=== PATIENT | female | born 2000 | race Caucasian/White ===

== ENCOUNTER 2023-09-27 11:00 | Outpatient (OUT) | payer OTHER, SELFPAY ==
[2023-09-28 08:07] LABS: HBsAg Screen Negative (Negative); HCV Ab Non Reactive (Non Reactive); HIV Ab/p24 Ag Screen Non Reactive (Non Reactive); Hep A Ab, IgM Negative (Negative); Hep B Core Ab, IgM Negative (Negative)
[2023-09-28 09:07] LABS: Rapid Plasma Reagin, Quant Non Reactive titer (NonRea<1:1)
== END 2023-09-27 11:01 | disposition home or self-care (01) ==
LOC: LAB 11:02
PROVIDERS: PCP Family Medicine; Visit Provider Nurse Practitioner Obstetrics & Gynecology
DX: Z11.3 Encounter for screening for infections with a predominantly sexual mode of transmission (principal)
CPT/HCPCS: 36415; 80074; 86592; 87389

== ENCOUNTER 2024-03-02 13:05 | Outpatient (OUT) | payer OTHER, SELFPAY ==
[2024-03-02 13:46] LABS: Basophils Absolute Auto 0.1 10^3/uL (0.0-0.1); Basophils Percent Auto 0.7 % (0.2-2.0); Eosinophils Absolute Auto 0.5 10^3/uL (0.0-0.7); Eosinophils Percent Auto 7.9 % (0.9-7.0); Hematocrit 37.7 % (36.0-48.0); Hemoglobin 11.5 g/dL (12.0-16.0); Immature Granulocytes Abs Auto 0.02 10^3/uL (0.00-0.03); Immature Granulocytes Pct Auto 0.3 % (0.0-0.5); Lymphocytes Absolute Auto 1.4 10^3/uL (1.2-3.8); Lymphocytes Percent Auto 20.3 % (20.5-60.0); Mean Corpuscular HGB Conc 30.5 g/dL (29.9-35.2); Mean Corpuscular Hemoglobin 24.8 pg (26.7-34.0); Mean Corpuscular Volume 81.4 fL (81.0-99.0); Mean Platelet Volume 9.8 fL (9.5-13.5); Monocytes Absolute Auto 0.7 10^3/uL (0.3-0.8); Monocytes Percent Auto 9.7 % (1.7-12.0); Neutrophils Absolute Auto 4.1 10^3/uL (1.4-6.5); Neutrophils Percent Auto 61.1 % (43.0-75.0); Platelet Count 338 10^3/uL (150-450); Red Blood Count 4.63 10^6/uL (4.20-5.40); Red Cell Distribution Width 14.2 % (11.0-15.0); White Blood Count 6.7 10^3/uL (4.0-11.0)
[2024-03-02 14:05] LABS: Alanine Aminotransferase 35 U/L (14-59); Albumin Globulin Ratio 1.2; Albumin Level 3.8 g/dL (3.4-5.0); Alkaline Phosphatase 48 U/L (46-116); Anion Gap 15.7; Aspartate Amino Transferase 21 U/L (15-37); BUN Creatinine Ratio 8.2; Bilirubin Total 0.3 mg/dL (0.2-1.0); Calcium 8.8 mg/dL (8.5-10.1); Carbon Dioxide 26.4 mmol/L (21.0-32.0); Chloride 103 mmol/L (98-107); Estimated GFR (African America >60 (>=60); Estimated GFR (Non-African Ame >60 (>=60); Globulin 3.2 g/dL; Glucose 102 mg/dL (74-106); Potassium 4.1 mmol/L (3.5-5.1); Sodium 141 mmol/L (136-145); Thyroid Stimulating Hormone 5.893 uIU/mL (0.358-3.740)
[2024-03-02 14:15] LABS: Percent Iron Saturation 6.5 %
== END 2024-03-02 13:06 | disposition home or self-care (01) ==
LOC: LAB 13:07
PROVIDERS: PCP Family Medicine; Visit Provider Family Medicine
DX: Z79.899 Other long term (current) drug therapy (principal); R53.83 Other fatigue; D50.9 Iron deficiency anemia, unspecified
CPT/HCPCS: 36415; 80053; 82728; 83540; 83550; 84443; 85025

== ENCOUNTER 2024-05-04 10:09 | Outpatient (OUT) | payer BC, SELFPAY ==
--- OUTSIDE RECORDS SUMMARY | 2024-05-04 10:25 | XMS_ITS | CCD ---
Author Organization [facility] Care Team Providers Care Ship'S Engineer Name Role Phone DR SHERLEY MITCHELL Primary Care Unavailable LUIS FELIPE, DR VINCE Downing Attending Unavailable LUIS FELIPE, DR VINCE Downing Consulting Unavailable LUIS FELIPE, DR VINCE Downing Admitting Unavailable EMETERIO ROSS Consulting Unavailable PERCY TYLER Consulting Unavailable Sherley Valdez Consulting Unavailable PAULA, DR LEPE Admitting Unavailable PAULA, DR LEPE Attending Unavailable PAULA, DR LEPE Consulting Unavailable Sherley Mitchell Unavailable Unavailable Primary Care Provider UnavailEDELMIRA Singh Referring Unavailable EDELMIRA FOSTER Referring Unavailable EDELMIRA FOSTER Referring Unavailable Medications Current Medications Medication Drug Class(es) Dates Sig (Normalized) Sig (Original) [id number] 200 actuat albuterol 0.09 mg/actuat metered dose inhaler (8 sources) beta2-Adrenergic Agonist take 2 puff(s) by inhalation every six hours as needed for wheezing albuterol (PROVENTIL HFA;VENTOLIN HFA) 90 mcg/actuation inhaler Inhale 2 puffs every 6 (six) hours as needed for wheezing. Active take 2 puff(s) by mo uth every four hours for cough Albuterol Sulfate HFA 108 (90 Base) MCG/ACT INHALE 2 PUFFS BY MOUTH EVERY 4 HOURS IF NEEDED FOR COUGH OR SHORTNESS OF BREATH Active take 2 puff(s) by mo uth every four hours for cough Albuterol Sulfate HFA 108 (90 Base) MCG/ACT inhale 2 puffs by mouth and INTO THE LUNGS every 4 hours if needed for cough shortness of breath or wheezing for 16 Active azithromycin 250 mg oral tablet (3 sources) Macrolide Antimicrobial Start: 07-04-2022 Azithromycin 250 MG 2 tablets on day 1 Orally then take 1 tablet daily on days 2-5 for 5 days Jun, Active Ethinyl Estradiol / Ferrous fumarate / Norethindrone (1 source) Estrogen Start: 04-16-2024 take 1 tablet by mouth in the morning, then take 0.05 tablet by mouth once norethindrone-e.e stradioL-iron (JUNEL FE ,) 1 mg-20 mcg (21)/75 mg (7) per tablet Indications: Encounter for initial prescription of contraceptive pills Take 1 tablet by mouth in the morning. 84 tablet 04/16/2024 Active 168 hr ethinyl estradiol 0.57049 mg/hr / norelgestromin 0.12348 mg/hr transdermal system (2 sources) Progestin, Estrogen Start: 04-06-2024 End: 04-16-2024 apply 1 dose transdermal route every week norelgestromin-et hin.estradioL (XULANE) 150-35 mcg/24 hr Indications: Initial encounter for management of contraceptive patch use Place a new patch on the skin as directed once weekly for three weeks, followed by a patch-free week. 3 patch 3 04/06/2024 04/16/2024 Discontinued (Alternate therapy) phentermine hydrochloride 37.5 mg oral tablet (4 sources) Sympathomimetic Amine Anorectic Start: 01-26-2024 take 1 tablet by mouth once daily before breakfast phentermine (ADIPEX-P) 37.5 mg tablet Take 1 tablet (37.5 mg total) by mouth every morning before breakfast. 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 Anxiety disorders (6 sources) Anxiety; Translations: [Anxiety disorder, unspecified] Chronic Appendicitis and other appendiceal conditions (4 sources) Unspecified acute appendicitis; Translations: [UNSPECIFIED ACUTE APPENDICITIS] Onset: 03-16-2021 Episodic Contraceptive and procreative management (3 sources) Encounter for other general counseling and advice on contraception; Translations: [Encounter for surveillance of transdermal patch hormonal contraceptive device] Onset: 04-06-2024 Episodic Deficiency and other anemia (6 sources) Iron deficiency anemia; Translations: [Iron deficiency anemia, unspecified] Episodic Diseases of white blood cells (6 sources) Increased blood leukocyte number; Translations: [Elevated white blood cell count, unspecified] Chronic Esophageal disorders (6 sources) Acid reflux; Translations: [Gastro-esophageal reflux disease without esophagitis] Chronic Immunizations and screening for infectious disease (7 sources) Patient encounter status; Translations: [Encounter for screening for infections with a predominantly sexual mode of transmission] Onset: 09-30-2023 09-30-2023 Episodic Mood disorders (6 sources) Major depressive disorder, single episode, unspecified; Translations: [Depression] Chronic Nutritional deficiencies (6 sources) Vitamin D deficiency; Translations: [Vitamin D deficiency, unspecified] Chronic Other ear and sense organ disorders (6 sources) Hearing loss of left ear; Translations: [Unspecified hearing loss, left ear] Chronic Other ear and sense organ disorders (1 source) Unspecified hearing loss, left ear Chronic Other ear and sense organ disorders (1 source) Impacted cerumen, unspecified ear Episodic Other gastrointestinal disorders (6 sources) Dysphagia; Translations: [Dysphagia, unspecified] Episodic Other gastrointestinal disorders (1 source) Dysphagia, unspecified Episodic Other lower respiratory disease (1 source) Shortness of breath Episodic Other nutritional; endocrine; and metabolic disorders (1 source) Obesity, unspecified; Translations: [OBESITY UNSPECIFIED] Onset: 03-22-2021 Chronic Other nutritional; endocrine; and metabolic disorders (1 source) Body mass index (BMI) 36.0-36.9, adult; Translations: [BODY MASS INDEX BMI 36.0-36.9 ADULT] Onset: 03-22-2021 Chronic Other nutritional; endocrine; and metabolic disorders (1 source) Obese class II; Translations: [Obesity, unspecified] Onset: 03-11-2023 03-11-2023 Chronic Other nutritional; endocrine; and metabolic disorders (2 sources) Obese class I; Translations: [Obesity (BMI 30.0-34.9)] Onset: 03-11-2023 04-06-2024 Chronic Other nutritional; endocrine; and metabolic disorders (2 sources) Abnormal weight gain Episodic Other upper respiratory disease (6 sources) Allergic rhinitis; Translations: [Allergic rhinitis, unspecified] Chronic Screening and history of mental health and substance abuse codes (2 sources) Encounter for screening for depression; Translations: [Standardized adult depression screening tool completed ] Onset: 04-06-2024 04-06-2024 Episodic Thyroid disorders (6 sources) Goiter; 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 Unclassified (1 source) CONTACT W/AND (SUSP) EXPOS COVID-19; Translations: [CONTACT W/AND (SUSP) EXPOS COVID-19] Onset: 03-22-2021 Unclassified (1 source) Gynecologic Exam Onset: 04-06-2024 Unclassified (1 source) Exposure to STD Onset: 06-18-2023 Past or Other Problems Problem Classification Problem Date Documented Date Episodic/Chronic Deficiency and other anemia (4 sources) Iron deficiency anemia, unspecified; Translations: [IRON DEFICIENCY ANEMIA UNSPECIFIED] Onset: 05-08-2020 Episodic Mood disorders (3 sources) Mood disorders Onset: 03-11-2023 Resolved: 04-06-2024 03-11-2023 Other female genital disorders (2 sources) Vaginal discharge; Translations: [Other specified noninflammatory disorders of vagina] Onset: 09-30-2023 09-30-2023 Episodic Other female genital disorders (2 sources) Other specified noninflammatory disorders of vagina; Translations: [Other specified noninflammatory disorders of vagina] Onset: 09-30-2023 Episodic Unclassified (1 source) Acute cough R05.1 Unclassified (3 sources) Onset: 03-11-2023 Resolved: 04-06-2024 03-11-2023 Results Test Name Value Interpretation Reference Range Facility CHLAMYDIA/GC BY PCRon 2023 CHLAMYDIA/GC BY PCR SPECIMEN SOURCE CERVICAL CHLAMYDIA DNA(PCR) Negative (qualifier value) Chlamydia trachomatis not detected by nucleic acid amplification. This does not exclude the possibility of infection because results are dependent on adequate specimen collection. GONORRHOEAE DNA(PCR) Negative (qualifier value) Neisseria gonorrhoeae not detected by nucleic acid amplification. This does not exclude the possibility of infection because results are dependent on adequate specimen collection. Normal [facility] Comment on above: Performed By: #### C GS #### [facility] ([id number]) [address] [place] [address], [address] [place] [address] POCT , urineon 100 Beta HCG ( test) Ql (U) Negative [facility] Internal Wine Steward Check Completed and Passed Yes [facility] Interpretation and review of laboratory results Normal [facility] TRICHOMONAS PCRon 04-06-2024 TRICHOMONAS PCR SPECIMEN SOURCE CERVICAL TRICHOMONAS PCR Not detected (qualifier value) Trichomonas vaginalis not detected NOTE Assay methodology is nucleic acid amplification by real-time PCR for detection of Trichomonas vaginalis DNA performed on [employer] Instrument System. Normal [facility] Comment on above: Performed By: #### T RKPCR #### [facility] ([id number]) [address] [place] [address], [address] [address] CHLAMYDIA/GC BY PCRon 2023 CHLAMYDIA/GC BY PCR SPECIMEN SOURCE CERVIX CHLAMYDIA DNA(PCR) Negative (qualifier value) Chlamydia trachomatis not detected by nucleic acid amplification. This does not exclude the possibility of infection because results are dependent on adequate specimen collection. GONORRHOEAE DNA(PCR) Negative (qualifier value) Neisseria gonorrhoeae not detected by nucleic acid amplification. This does not exclude the possibility of infection because results are dependent on adequate specimen collection. Normal [facility] Comment on above: Performed By: #### C GS #### [facility] ([id number]) [address] [place] [address], [address] [place] [address] VAGINITIS PANEL PCRon 2023 VAGINITIS PANEL PCR BACT. VAGINOSIS DNA Not detected (qualifier value) Qualitative results are reported based on detection and quantitation of targeted organism markers which include: Lactobacillus spp. (L. crispatus and L. jensenii), Gardnerella vaginalis, Atopobium vaginae, Bacterial Vaginosis Associated Bacteria-2 (BVAB-2) and Megasphaera-1 KALANI SPECIES DNA Not detected (qualifier value) Kalani species not detected include: C. albicans, C. tropicalis, C. parapsilosis or C. dubliniensis KALANI KRUSEI DNA Not detected (qualifier value) No Kalani krusei detected KALANI GLABRATA DNA Not detected (qualifier value) No Kalani glabrata detected TRICHOMONAS VAG DNA Not detected (qualifier value) No Trichomonas vaginalis detected NOTE BD MAX Vaginal Panel has not been evaluated for patients under 18 years old. Results for these patients should be reviewed and assessed in accordance with clinical presentation to determine patient diagnosis. [facility] Comment on above: Performed By: #### V PPCR #### [facility] ([id number]) [address] [place] [address], [address] [place] [address] CHLAMYDIA/GC BY PCRon 2022 CHLAMYDIA/GC BY PCR SPECIMEN SOURCE CERVIX CHLAMYDIA DNA(PCR) Negative (qualifier value) Chlamydia trachomatis not detected by nucleic acid amplification. This does not exclude the possibility of infection because results are dependent on adequate specimen collection. GONORRHOEAE DNA(PCR) Negative (qualifier value) Neisseria gonorrhoeae not detected by nucleic acid amplification. This does not exclude the possibility of infection because results are dependent on adequate specimen collection. [facility] Comment on above: Performed By: #### C GS #### [facility] ([id number]) [address] [place] [address], [address] [place] [address] VAGINITIS PANEL PCRon 2022 VAGINITIS PANEL PCR BACT. VAGINOSIS DNA Not detected (qualifier value) Qualitative results are reported based on detection and quantitation of targeted organism markers which include: Lactobacillus spp. (L. crispatus and L. jensenii), Gardnerella vaginalis, Atopobium vaginae, Bacterial Vaginosis Associated Bacteria-2 (BVAB-2) and Megasphaera-1 KALANI SPECIES DNA Not detected (qualifier value) Kalani species not detected include: C. albicans, C. tropicalis, C. parapsilosis or C. dubliniensis KALANI KRUSEI DNA Not detected (qualifier value) No Kalani krusei detected KALANI GLABRATA DNA Not detected (qualifier value) No Kalani glabrata detected TRICHOMONAS VAG DNA Not detected (qualifier value) No Trichomonas vaginalis detected NOTE BD MAX Vaginal Panel has not been evaluated for patients under 18 years old. Results for these patients should be reviewed and assessed in accordance with clinical presentation to determine patient diagnosis. Normal [facility] Comment on above: Performed By: #### V PPCR #### [facility] ([id number]) [address], [address] [place] [address] ASYMPTOMATIC COVID-19 ANTIGE Non 03-16-2021 EUA Statement SEE BELOW Normal [facility] Comment on above: Result Comment: This test has not been FDA cleared or approved, but has been authorized by the FDA under an Emergency Use Authorization (EUA) for use by authorized laboratories certified under CLIA that meet the requirements to perform moderate or high complexity testing. This test has been authorized only for the detection of proteins from SARS-CoV-2, not for any other viruses or pathogens. The emergency use of this test is authorized for the duration of the declaration that circumstances exist justifying the authorization of emergency use of in vitro diagnostic tests for detection and/or diagnosis of Covid-19 under section 564(b)(1) of the Act, 21 U.S.C. 360bbb-3(b)(1), unless the declaration is terminated or authorization is revoked sooner. Performed By: #### C VDAGA #### [facility] [address] [address] [address] Shasta Castro SARS-CoV-2 (COVID-19) RNA DAMIEN+probe Ql (Unsp spec) Negative Normal NEGATIVE [facility] Comment on above: Result Comment: Nega tive results are presumptive. They do not preclude infection and should not be used as the sole basis for treatment decisions. Additional confirmatory testing by a molecular method should be considered. Performed By: #### C VDAGA #### [facility] [address] [place], [place] [address] Dr. Shasta Castro CBC AUTO DIFFon 03-16-2021 BASO # 0.1 103/ul Normal 0.0-0.1 [facility] Comment on above: Performed By: #### C BC ####[facility] [address] [place], [place] [address]IlDr. Shasta Castro Basophils/100 WBC (Bld) 0.7 % Normal 0.2-2.0 [facility] Comment on above: Performed By: #### C BC ####[facility] [address] [place], [place] [address]DrNaren Castro EO # 0.5 103/ul Normal 0.0-0.7 [facility] Comment on above: Performed By: #### C BC ####[facility] [address] [place], [place] [address]Dr. Shasta Castro Eosinophils/100 WBC (Bld) 6.2 % Normal 0.9-7.0 [facility] Comment on above: Performed By: #### C BC ####[facility] [address] [place], [place] [address]Dr. Shasta Castro Erythrocyte distribution width (RBC) [Ratio] 13.8 % Normal 11.0-15.0 [facility] Comment on above: Performed By: #### C BC ####[facility] [address] [place], [place] [address]Dr. Shasta Castro Hematocrit (Bld) [Volume fraction] 37.8 % Normal 36.0-48.0 [facility] Comment on above: Performed By: #### C BC ####[facility] [address] [place], [place] [address]DrNaren Castro Hemoglobin (Bld) [Mass/Vol] 11.8 g/dL Critically low 12.0-16.0 [facility] Comment on above: Performed By: #### C BC ####[facility] [address] [place], [place] [address]DrNaren Castro IG # 0.03 10e3/ul Normal 0.00-0.03 [facility] Comment on above: Performed By: #### C BC ####[facility] [address] [place], [place] [address]Dr. Shasta Castro IG % 0.4 % Normal 0.0-0.5 [facility] Comment on above: Performed By: #### C BC ####[facility] [address] [place], [place] [address]DrNaren Castro LYMPH # 1.8 103/ul Normal 1.2-3.8 [facility] Comment on above: Performed By: #### C BC ####[facility] [address] [address]Dr. Shasta Castro Lymphocytes/100 WBC (Bld) 21.2 % Normal 20.5-60.0 [facility] Comment on above: Performed By: #### C BC ####[facility] [address] [address]Dr. Shasta Castro MANUAL DIFF REQ NO Normal [facility] Comment on above: Performed By: #### C BC ####[facility] [address] [address]Dr. Shasta Castro MCH (RBC) [Entitic mass] 24.7 pg Critically low 26.7-34.0 [facility] Comment on above: Performed By: #### C BC ####[facility] [address] [place], [place] [address]Dr. Shasta Castro MCHC (RBC) [Mass/Vol] 31.2 g/dL Normal 29.9-35.2 [facility] Comment on above: Performed By: #### C BC ####[facility] [address] [place], [place] [address]Dr. Shasta Castro MCV (RBC) [Entitic vol] 79.2 fL Critically low 81.0-99.0 [facility] Comment on above: Performed By: #### C BC ####[facility] [address] [place], [place] [address]Dr. Shasta Castro MONO # 0.6 103/ul Normal 0.3-0.8 [facility] Comment on above: Performed By: #### C BC ####[facility] [address] [place], [place] [address]DrNaren Castro Monocytes/100 WBC (Bld) 7.5 % Normal 1.7-12.0 [facility] Comment on above: Performed By: #### C BC ####[facility] [address] [place], [place] [address]Dr. Shasta Castro NEUT # 5.4 103/ul Normal 1.4-6.5 [facility] Comment on above: Performed By: #### C BC ####[facility] [address] [address]Dr. Shasta Castro Neutrophils/100 WBC (Bld) 64.0 % Normal 43.0-75.0 [facility] Comment on above: Performed By: #### C BC ####[facility] [address] [address]Dr. Shasta Castro Platelet mean volume (Bld) [Entitic vol] 9.6 fL Normal 9.5-13.5 [facility] Comment on above: Performed By: #### C BC ####[facility] [address] [place] [address]Dr. Shasta Castro PLT 354 103/ul Normal 150-450 [facility] Comment on above: Performed By: #### C BC ####[facility] [address] [place] [address]Dr. Shasta Castro RBC 4.77 106/ul Normal 4.20-5.40 [facility] Comment on above: Performed By: #### C BC ####[facility] [address] [address]Dr. Shasta Castro WBC 8.4 103/ul Normal 4.0-11.0 [facility] Comment on above: Performed By: #### C BC ####[facility] [id number]. Shasta Castro CT ABD/PELV W CONon 03-16-[address] ABD/PELV W CON CT ABDOMEN AND PELVIS WITH CONTRAST CLINICAL: Right lower quadrant pain for 3 days. COMPARISON: No prior studies are available. TECHNIQUE: High-resolution axial images were obtained from diaphragms to pubic symphysis after IV administration 100 ml Omnipaque 300. Dose reduction: mA and/or kV are were adjusted by automated exposure control software based upon patients height and weight. FINDINGS: Lung bases are unremarkable. The liver, spleen, pancreas and adrenals are unremarkable. Gallbladder shows no evidence of calcified gallstones or biliary obstruction. Kidneys show no evidence of obstructive uropathy, calculus or mass. Urinary bladder shows no gross abnormality. Distal ureters and bladder show no evidence of filling defect on delayed images. Uterus and adnexal regions appear age-appropriate, with a peripherally enhancing cyst in the left adnexa measuring 2.2 cm, probably a corpus luteum. Small amount of free pelvic fluid is probably physiologic in light of patient's age but may also be in part reactive in light of the appendiceal findings discussed below. In the right lower quadrant, the appendix is thickened at 1.1 cm transverse diameter and shows ill-defined mucosal margins and surrounding mesenteric inflammation. No evidence of extraluminal gas or fluid collection. No bowel obstruction or free intraperitoneal air. No ascites or abdominal adenopathy. Ileocolic lymph nodes of up to 6 mm diameter likely reactive or inflammatory. Osseous structures show no traumatic or destructive lesion. IMPRESSION: 1. CT findings consistent with acute appendicitis. 2. The appendix is mildly dilated with ill-defined mucosal margins, surrounding mesenteric inflammation and mild hyperenhancement. No evidence of extraluminal gas or fluid to indicate perforation or rupture. 3. Small amount of free pelvic fluid likely physiologic in light of patient's age but may be reactive in this setting. 2.2 cm peripherally enhancing left adnexal cyst, probably a physiologic corpus luteum. 4. No additional acute intra-abdominal or intrapelvic findings. Electronically authenticated by: SHERLEY VALDEZ Date: 2021-03-16 12:06 Normal [facility] SARS-CoV-2 (COVID-19) RNA DAMIEN+probe Ql (Unsp spec) Not detected Normal NOT DETECTED [facility] Comment on above: Result Comment: This test is not yet approved or cleared by the [place] FDA. When there are no FDA-approved or cleared tests available, and other criteria are met, FDA can make tests available under an emergency access mechanism called an Emergency Use Authorization (EUA). The EUA for this test is supported by the Animal Researcher of Health and Human Service's (HHS's) declaration that circumstances exist to justify the emergency use of in vitro diagnostics for the detection and/or diagnosis of the virus that causes COVID-19. This EUA will remain in effect (meaning this test can be used) for the duration of the COVID-19 declaration justifying emergency of IVDs, unless it is terminated or revoked by FDA (after which the test may no longer be used). When diagnostic testing is negative, the possibility of a false negative should be considered in the context of a patient's recent exposures and the presence of clinical signs and symptoms consistent with SARS-CoV-2. Performed By: #### C VDTB ####[facility] [address] [address]Dr. Shasta Castro ER URINE PROFILEon 1 Bilirubin Ql (U) Negative Normal NEGATIVE [facility] Comment on above: Performed By: #### E RUR, PREGU #### [facility] [address] [place] [address] Dr. Shasta Castro Clarity (U) CLEAR Normal CLEAR [facility] Comment on above: Performed By: #### E RUR, PREGU #### [facility] [address] [place] [address] Dr. Shasta Castro Color (U) LT. YELLOW Normal YELLOW [facility] Comment on above: Performed By: #### E RUR, PREGU #### [facility] [address] [place] [address] Dr. Shasta Castro ERUAHD A micrscopic examination will be performed if indicated. Normal [facility] Comment on above: Performed By: #### E RUR, PREGU #### [facility] [address] [place] [address] Dr. Shasta Castro Glucose Ql (U) Negative Normal NEGATIVE [facility] Comment on above: Performed By: #### E RUR, PREGU #### [facility] [address] [place] [address] Dr. Shasta Castro Hemoglobin Ql (U) Negative Normal NEGATIVE [facility] Comment on above: Performed By: #### E RUR, PREGU #### [facility] [address] [place] [address] Dr. Shasta Castro Ketones Ql (U) Negative Normal NEGATIVE [facility] Comment on above: Performed By: #### E RUR, PREGU #### [facility] [address] [place] [address] Dr. Shasta Castro LEUKOCYTES TRACE Abnormal NEGATIVE [facility] Comment on above: Performed By: #### E RUR, PREGU #### [facility] [address] [place] [address] Dr. Shasta Castro Nitrite Ql (U) Negative Normal NEGATIVE [facility] Comment on above: Performed By: #### E RUR, PREGU #### [facility] [address] [place] [address] Dr. Shasta Castro pH (U) 6.0 [pH] Normal 5-9 [facility] Comment on above: Performed By: #### E RUR, PREGU #### [facility] [address] [place] [address] Dr. Shasta Castro SPEC GRAVITY 1.025 Normal 1.005-<=1.025 [facility] Comment on above: Performed By: #### E RUR, PREGU #### [facility] [address] [place] [address] Dr. Shasta Castro UA PROTEIN Negative Normal NEGATIVE/ TRACE [facility] Comment on above: Performed By: #### E RUR, PREGU #### [facility] [address] [place] [address] Dr. Shasta Castro UR MICRO IND NOT INDICATED Normal [facility] Comment on above: Performed By: #### E RUR, PREGU #### [facility] [address] [place] [address] Dr. Shasta Castro Urobilinogen Qn (U) 0.2 {Ester'U}/dL Normal 0.2 - 1. 0 [facility] Comment on above: Performed By: #### E RUR, PREGU #### [facility] [address] [place] [address] Dr. Shasta Castro URon 03-16-2021 , QUAL Negative Normal NEGATIVE [facility] Comment on above: Performed By: #### E RUR, PREGU #### [facility] [address] [place] [address] Dr. Shasta Castro PROF CHEM 8 (BAS METB)on Anion gap [Moles/Vol] 13.9 mmol/L Normal [facility] Comment on above: Performed By: #### B MP #### [facility] [address] [address] [address] Shasta Castro Calcium [Mass/Vol] 9.1 mg/dL Normal 8.4-10.2 [facility] Comment on above: Performed By: #### B MP #### [facility] [address] [address] [address] Shasta Castro Chloride [Moles/Vol] 103 mmol/L Normal 98-107 [facility] Comment on above: Performed By: #### B MP #### [facility] [address] [place] [address] Dr. Shasta Castro CO2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 1286 1998 Unknown [id number] 1286 1998 Unknown [id number] 1286 1998 Unknown [id number] 1959 Unknown [id number] Social History Date Type Detail Facility Start: 09-30-2023 End: 04-06-2024 Sex Assigned At [facility] Start: 08-07-2022 Tobacco smoking stat [facility] Never smoked tobacco [facility] Start: 08-07-2022 Tobacco use and exposure Smokeless tobacco non-user [facility] Start: 09-30-2023 End: 04-06-2024 Alcohol intake Current drinker of alcohol (finding) [facility] Start: 09-30-2023 End: 04-06-2024 History of Social function [facility] Adolescent depressio n screening assessment 8 [facility] Start: 08-07-2022 Alcohol Comment socially [facility] Start: 2000 Sex Assigned At Not on file P [facility] Start: 02-02-2015 Sex Female (finding) [facility] Clinical Notes 03-16-2021 to 04-06-2024 Edelmira Foster, [facility] 04/06/2024 9:30 AM EDTLjosé miguel Markham [facility] - 09/30/2023 9:15 AM EDT Note Date & Type Note Facility 04-06-2024 History of Present illness Narrative Annual Well Woman Visit 04/06/2024 Subjective Tonia Tidwell is a pleasant 24 y.o. 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 Periods are regular every 28-30 days, lasting 5 days. Dysmenorrhea: none. Cyclic symptoms include none. Denies intermenstrual bleeding, spotting, or abnormal discharge. No pelvic pain. Patient desires all STD testing today. Complaints today: wants to discuss contraception, last intercourse was 2 weeks ago with a condom Relationship status: in a relationship The patient reports that there is not domestic violence in her life. 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 [employer] Former smoker Children NO Current contraception: condoms History of abnormal Pap smear: no Last pap: 2022- Regular self breast exam: no Last mammogram: N/A Family history of breast cancer: yes - paternal grandmother age 60s Family history of uterine or ovarian cancer: no Family history of pancreatic or prostate cancer: no Family history of colon cancer: no HPV vaccinated: no PHQ9 depression screenin LMP 03/20/2024 OB History 0 Para 0 Term 0 0 AB 0 Living 0 SAB 0 IAB 0 Ectopic 0 Multiple 0 Live Births 0 The following portions of the patient's history were reviewed and updated as appropriate: allergies, current medications, past family history, past medical history, past social history, past surgical history and problem list. MEDICAL HX Past Medical History: Diagnosis Date Anemia In 2018 Anxiety 2017 Asthma Depression 2017 SURGICAL HX Past Surgical History: Procedure Laterality Date APPENDECTOMY 2021 FAMILY HX Family History Problem Relation Age of Onset Breast cancer Paternal Grandmother Asthma Brother MEDS Current Outpatient Medications Medication Sig Dispense Refill albuterol (PROVENTIL HFA;VENTOLIN HFA) 90 mcg/actuation inhaler Inhale 2 puffs every 6 (six) hours as needed for wheezing. phentermine (ADIPEX-P) 37.5 mg tablet Take 1 tablet (37.5 mg total) by mouth every morning before breakfast. norelgestromin-ethin.estradioL (XULANE) 150-35 mcg/[address] a new patch on the skin as directed once weekly for three weeks, followed by a patch-free week. 3 patch 3 No current facility-administered medications for this visit. ALLERGIES No Known Allergies Review of Systems Constitutional: Negative. Respiratory: Negative. Negative for chest tightness and shortness of breath. Cardiovascular: Negative. Negative for chest pain and palpitations. Gastrointestinal: Negative. Negative for constipation, diarrhea, nausea and vomiting. Endocrine: Negative. Genitourinary: Negative. Negative for dyspareunia, menstrual problem and pelvic pain. Musculoskeletal: Negative. Skin: Negative. Allergic/Immunologic: Negative. Neurological: Negative. Hematological: Negative. Psychiatric/Behavioral: Negative. Objective BP 118/88 Ht 157.5 cm (5' 2 ) Wt 81.6 kg (180 lb) LMP 03/20/2024 (Approximate) BMI 32.92 kg/m Physical Exam Vitals and nursing note reviewed. Constitutional: Appearance: Normal appearance. HENT: Head: Normocephalic and atraumatic. Cardiovascular: Rate and Rhythm: Normal rate and regular rhythm. Pulses: Normal pulses. Heart sounds: Normal heart sounds. Pulmonary: Effort: Pulmonary effort is normal. Breath sounds: Normal breath sounds. Chest: Breasts: Breasts are symmetrical. Right: Normal. No mass, skin change or tenderness. Left: Normal. No mass, skin change or tenderness. Abdominal: General: Bowel sounds are normal. Palpations: Abdomen is soft. Genitourinary: General: Normal vulva. Labia: Right: No rash or lesion. Left: No rash or lesion. Vagina: Normal. Cervix: Normal. Uterus: Normal. Not enlarged and not tender. Adnexa: Right adnexa normal and left adnexa normal. Right: No mass, tenderness or fullness. Left: No mass, tenderness or fullness. Musculoskeletal: General: Normal range of motion. Cervical back: Normal range of motion and neck supple. Skin: General: Skin is warm and dry. Neurological: Mental Status: She is alert and oriented to person, place, and time. Psychiatric: Mood and Affect: Mood normal. Speech: Speech normal. Behavior: Behavior normal. Thought Content: Thought content normal. Judgment: Judgment normal. Assessment/Plan: Tonia was seen today for gynecologic exam and contraception. Diagnoses and all orders for this visit: Well woman exam with routine gynecological exam Screening examination for STD (sexually transmitted disease) - Chlamydia/GC by PCR Nixon Swab; Future - Trichomonas by PCR; Future - HIV 1&2 AB/AG Screen (P24 AG); Future - Syphilis Total(Unknown Syphilis Status); Future - Hepatitis panel, acute; Future General counselling and advice on contraception - POCT , urine Initial encounter for management of contraceptive patch use - norelgestromin-ethin.estradioL (XULANE) 150-35 mcg/24 hr; Place a new patch on the skin as directed once weekly for three weeks, followed by a patch-free week. Standardized adult depression screening tool completed Discussed risks / benefits of BC options: OCPs, POPs, patch, NuvaRing vs LARCs (IUDs/implant/Depo provera). Patient desires patches. BMI is above average; Discussed eating tips for weight loss and and exercise steps. Breast self exam technique reviewed and patient encouraged to perform self-exam monthly. Discussed healthy lifestyle modifications. Educational material distributed. 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 Follow up as needed. Next pap due 2025 per ASCCP guidelines. Discussed taking a multivitamin. Discussed Calcium and Vitamin D for prevention of osteoporosis. Discussed recommendations for HPV vaccine between 9-45 yo. [facility] or the health department. Discussed need for yearly mammogram after 40 yo. Discussed colon cancer screening recommendations to begin at 45 yo, patient to discuss with PCP. All questions answered. RTO 3 months for medication follow up. DANELLE Currie APRN-CNP Lisa M Krotzer, APRN-CNP 04/06/24 [id number] documented in this encounter [facility] 09-30-2023 History of Present illness Narrative Subjective: Tonia Tidwell is a 23 y.o. female who presents for evaluation of an abnormal vaginal discharge. Symptoms have been present for approx 5 days. Pt reports that on Friday last week she had a chunk yellow discharge and suspected she was about to get a yeast infection. She denies any vaginal itching. She states that on it had developed into a slimy green/yellow color with a slight odor. She denies any abnormal discharge or odor today and states that her sympotms cleared up on Friday. Patient denies pelvic pain. Patient states she went to [facility] over the weekend and had syphilis, hepatitis and HIV labs drawn. She has not received results yet. Contraception: condoms, most of the time The following portions of the patient's history were reviewed and updated as appropriate: allergies, current medications, past family history, past medical history, past social history, past surgical history, problem list, and medication reconciliation was completed including current medication and post discharge medication. Review of Systems Constitutional: Negative. Gastrointestinal: Negative. Genitourinary: Positive for vaginal discharge. Negative for dyspareunia, menstrual problem and pelvic pain. Neurological: Negative. Psychiatric/Behavioral: Negative. Objective: Physical Exam Vitals and nursing note reviewed. Constitutional: Appearance: Normal appearance. Pulmonary: Effort: Pulmonary effort is normal. Genitourinary: General: Normal vulva. Labia: Right: No rash or lesion. Left: No rash or lesion. Vagina: Normal. Cervix: Normal. Musculoskeletal: General: Normal range of motion. Skin: General: Skin is warm and dry. Neurological: Mental Status: She is alert and oriented to person, place, and time. Psychiatric: Mood and Affect: Mood normal. Behavior: Behavior normal. Thought Content: Thought content normal. Judgment: Judgment normal. Assessment: Tonia was seen today for vaginal discharge. Diagnoses and all orders for this visit: Vaginal discharge - Vaginitis Panel PCR; Future - Chlamydia/GC by PCR Nixon Swab; Future Screen for STD (sexually transmitted disease) - Chlamydia/GC by PCR Nixon Swab; Future Plan: Await cultures and treat accordingly. KARL signed to obtain labs from [facility]. Consistent condom use recommended for STD prevention. All questions answered. Educational material provided through [employer]. RTO for annual (due February 2024) or sooner as needed. KRYSTIAN Lopez APRN-CNP Lisa M Franco, APRN-CNP 09/30/23 [id number] documented in this encounter [employer] 07-30-2023 Evaluation note Encounter Date Diagnosis Assessment Notes Jun, Weight gain (ICD-10 - R63.5) [employer] Other 01-25-2024 Evaluation note* Encounter Date Diagnosis Assessment Notes Treatment Notes Treatment Clinical Notes Jun, Acute cough (ICD-10 - R05.1) I feel that the cough and shortness of breath were caused by a respiratory infection. It appears to have responded by the Zithromax. She is not having any issues or difficulty breathing at this time. Jun, Shortness of breath (ICD-10 - R06.02) Jun, Weight gain (ICD-10 - R63.5) Her weight on 07/24/23 was 205. She would like to take Adipex to help with weight loss. 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 I would need to see her again in one month but she will need to call with a blood pressure reading in one week. She voiced that her goal weight is between 150-170 pounds. I encourgaed her to make dietary and lifestyle changes that she can continue with once she has lost the weight. Jun, Other This documentat ion is being amended on 07/30/23 due to an internal data corruption event that occurred on 07/24/23. This data corruption event was NOT the result of any breach, fraud, or malicious third libertarian actors and no personal patient information was compromised. [employer] Other 10-19-2023 Evaluation note* Encounter Date Diagnosis Assessment Notes Treatment Notes Treatment Clinical Notes Mar, Dysphagia (ICD-10 - R13.10) She has white exudates on her tonsils and it is difficult for her to swallow. I would like to treat with above medication. She is contagious for 48 hours after she has taken the antibiotic. Do not kiss or share drinks with anyone. I will provide her with an off work note for 04-17 and 04-18-23 due to medical reasons. Eat yogurt while on ATB to prevent GI upset. Rest, push fluids. Mar, Other 10:45 AM - 10:5 0 AM [employer] Other 09-13-2023 Evaluation note* Encounter Date Diagnosis Assessment Notes Treatment Notes Treatment Clinical Notes Feb, Impacted cerumen (ICD-10 - H61.20) bilateral but left was worse than right Verbal consent was obtained for a left ear irrigation. I would like her to return to complete the ear irrigation. She was able to hear once most of the ear was irrigated but due to her eyes beginning to bother her we elected to stop the procedure. She will return in two weeks for evaluation. I did recommend that she use OTC Debrox in the left ear and the right ear which is impacted with wax. Guidance was given on how to use the Debrox. She will return for a bilateral ear irrigation in two weeks. 13 Feb, 2023 Decreased hearing of left ear (ICD-10 - H91.92) I suspect that the cerumen impaction is the cause of the hearing difficulty on the left and she did state that momentarily her hearing was back to normal after we did get a significant amount of cerumen out of left EAC but then it seemed to close up again, hopefully because of water still in the canal. I am unable to visualize the TMs. [employer] Other 09-17-2021 NoteHISTORY AND PHYSICAL EXAMINATION CHIEF COMPLAINT: Right lower quadrant abdominal pain, acute appendicitis. HISTORY OF PRESENT ILLNESS: The patient is a 21-year-old woman who began to have right lower quadrant abdominal pain, states that she has had the pain for 3 days. At first, she thought she was constipated but then she had a bowel movement and the pain did not go away. As a result, she presented to the emergency department. Her white blood cell count was normal however a CT scan of the abdomen and pelvis was consistent with acute appendicitis. REVIEW OF SYSTEMS: Ten-point review of systems is negative except for what is noted in the HPI. PAST MEDICAL HISTORY: Negative. PAST SURGICAL HISTORY: Negative. FAMILY HISTORY: Noncontributory. ALLERGIES: No known drug allergies. HOME MEDICATIONS: None. SOCIAL HISTORY: Denies any tobacco or alcohol use. PHYSICAL EXAMINATION: VITAL SIGNS: Temperature is 98.1, heart rate 92, blood pressure 102/52, respiratory rate 16, O2 saturation is 100%, BMI 36.9. GENERAL: Comfortable currently. SKIN: No rashes or jaundice. HEENT: Normocephalic, atraumatic. Pupils equally round and reactive to light and accommodation. Extraocular movements are intact. No otorrhea or rhinorrhea. Throat without exudates. Mucous membranes are moist. NECK: Supple. No lymphadenopathy. No JVD. Thyroid is not enlarged. CARDIOVASCULAR: Regular rate and rhythm without murmurs, rubs or gallops. LUNGS: Clear to auscultation bilaterally. No wheezes, rhonchi or crackles. ABDOMEN: Soft, nondistended. Positive right lower quadrant tenderness. No involuntary guarding. EXTREMITIES: Warm. No clubbing, cyanosis or edema. NEUROLOGICAL: Cranial nerves II through XII grossly intact. Patient is alert and oriented x3. She has appropriate mood and affect. ASSESSMENT: Acute appendicitis. PLAN: 1. Patient will undergo a laparoscopic, possible open, appendectomy. 2. The risks of the procedure including bleeding, infection and bowel perforation were discussed with patient and she is willing to undergo the procedure. 3. Most likely, the patient will be discharged home after the procedure.. [facility] Signed and Approved by: DR VINCE VIRK . 03/23/2021 06:09:00[facility]09-17-2021 NoteOPERATIVE NOTE OPERATION DATE: 03/16/2021 PREOPERATIVE DIAGNOSIS: Acute appendicitis. POSTOPERATIVE DIAGNOSIS: Acute appendicitis. PROCEDURE PERFORMED: Laparoscopic appendectomy. SURGEON: Vince Virk MD BOBCAT DRIVER/LABOR: PATRICA Lind ANESTHESIA: General, 0.5% Marcaine for local. ESTIMATED BLOOD LOSS: Minimal. SPECIMENS: Appendix. DISPOSITION: Patient was extubated in the Operating Room and taken to the PACU in fair condition. PROCEDURE: Patient was brought into the Operating Room and placed supine on the operating table. After establishment of general endotracheal anesthesia, the patient's abdomen was prepped and draped in a sterile fashion. An infraumbilical incision was made. The incision was carried down through the skin using sharp dissection and through the soft tissue using electrocautery Bovie until reaching the anterior rectus fascia. The fascia was scored in the midline and grasped with Denisse clamps and elevated. 0 Vicryl stay sutures were placed. Using blunt dissection, the posterior sheath was visualized, grasped with hemostats and elevated and incised with a scalpel. A 12 mm Wilma port with a balloon was placed into her abdominal cavity and the balloon was insufflated with air. Under direct laparoscopic visualization, a 5 mm port was placed in her right upper quadrant and another 5 mm port was placed to the left of the midline in the lower abdomen. The operating table was then placed in a Trendelenburg position. The appendix was visualized. The tip of the appendix was enlarged and acutely inflamed. The base of the appendix was transected free and a defect in the mesoappendix was created with a curved dissector. The base of the appendix was transected using an Endo SVEN stapler. The mesoappendix was transected using the LigaSure device. The appendix was placed in an EndoCatch bag and brought out through the infraumbilical incision. The port was replaced and the abdomen re-insufflated with CO2 gas. The right lower quadrant was irrigated with normal saline and suctioned. The 5 mm ports were removed. There was no evidence of any bleeding. The infraumbilical port was removed and the fascia was reapproximated using the previously placed stay sutures. All the wounds were anesthetized with 0.5% Marcaine. The skin was reapproximated using 4-0 Monocryl in a subcuticular fashion. The incisions were cleaned with normal saline and dried. Tincture of benzoin was placed on both sides of the incisions and 1/2 inch Steri-Strips were placed along with dry sterile dressings. The patient was extubated in the Operating Room and taken to the PACU in fair condition. All instrument and sponge counts were correct at the end of the case.. [facility] Signed and Approved by: DR VINCE VIRK . 03/17/2021 07:52:00[facility] noteNo InformationNortClarks [facility] [employer] Other Evaluation note* Diagnosis Vaginal discharge- Primary Leukorrhea, not specified as infective Screen for STD (sexually transmitted disease) Screening examination for venereal disease [facility] Well woman exam with routine gynecological exam- Primary Routine gynecological examination Screening examination for STD (sexually transmitted disease) General counselling and advice on contraception Initial encounter for management of contraceptive patch use Standardized adult depression screening tool completed [facility] Encounter for initial prescription of contraceptive pills- Primary [facility] - Reported* Type Description Date Medical History chickenpox Medical History anxiety Medical History chronic depression [facility] [employer] Other Instructions* Attachments The following attachments cannot be sent through Care Everywhere. * Vaginitis (Ethiopian) * Control Options (Ethiopian) [facility] Attachments The following attachments cannot be sent through Care Everywhere. * How to Perform Breast Self-Examination (Ethiopian) * Ethinyl Estradiol and Norelgestromin, ADULT ([place]ian) documented in [facility] encounterK[facility] SystemInstructionsNot on file documented in this [facility] Summary Purpose Family History No Family History Records FoundNo Family History Records FoundNo Family History Records FoundNo Family History Records FoundNo Family History Records FoundNo Family History Records Found Advance Directives No Advanced Directives Records FoundNo Advanced Directives Records FoundNo Advanced Directives Records FoundNo Advanced Directives Records FoundNo Advanced Directives Records FoundNo Advanced Directives Records Found Additional Source Comments INFORMATION SOURCE (unrecogn ized section and content) DATE CREATED AUTHOR 05/13/[address] [facility] DATE CREATED AUTHOR AUTHOR'S ORGANIZ ATION 01/19/2020 [facility] DATE CREATED AUTHOR AUTHOR'S ORGANIZ ATION 03/23/2021 [facility] DATE CREATED AUTHOR AUTHOR'S ORGANIZ ATION 08/21/2021 [facility] DATE CREATED AUTHOR AUTHOR'S ORGANIZ ATION 04/07/2024 [facility] DATE CREATED AUTHOR AUTHOR'S ORGANIZ ATION 04/08/2024 [facility] REASON FOR VISIT (unrecogniz ed section and content) Reason Comments Vaginal Discharge Reason Comments Gynecologic Exam Pt is here for annua l exam. Contraception Pt is interested in BC pills. FOR RECORDS PERTAINING TO PATIENTS WHO ARE OR HAVE BEEN ENROLLED IN A CHEMICAL DEPENDENCY/SUBSTANCEABUSE PROGRAM, SOME INFORMATION MAY BE OMITTED. This clinical summary was aggregated from multiple sources. Caution should be exercised in using it in the provision of clinical care. This summary normalizes information from multiple sources, and as a consequence, information in this document may materially change the coding, format and clinical context of patient data. In addition, data may be omitted in some cases. CLINICAL DECISIONS SHOULD BE BASED ON THE PRIMARY CLINICAL RECORDS. [employer] [facility]. provides no warranty or guarantee of the accuracy or completeness of information in this document.
[2024-05-04 10:31] LABS: Basophils Absolute Auto 0.1 10^3/uL (0.0-0.1); Basophils Percent Auto 0.9 % (0.2-2.0); Eosinophils Absolute Auto 0.7 10^3/uL (0.0-0.7); Eosinophils Percent Auto 8.4 % (0.9-7.0); Hematocrit 40.1 % (36.0-48.0); Hemoglobin 12.4 g/dL (12.0-16.0); Immature Granulocytes Abs Auto 0.01 10^3/uL (0.00-0.03); Immature Granulocytes Pct Auto 0.1 % (0.0-0.5); Lymphocytes Absolute Auto 2.4 10^3/uL (1.2-3.8); Mean Corpuscular HGB Conc 30.9 g/dL (29.9-35.2); Mean Corpuscular Hemoglobin 24.9 pg (26.7-34.0); Mean Corpuscular Volume 80.7 fL (81.0-99.0); Mean Platelet Volume 9.6 fL (9.5-13.5); Monocytes Absolute Auto 0.5 10^3/uL (0.3-0.8); Monocytes Percent Auto 6.5 % (1.7-12.0); Neutrophils Absolute Auto 4.3 10^3/uL (1.4-6.5); Neutrophils Percent Auto 54.1 % (43.0-75.0); Platelet Count 406 10^3/uL (150-450); Red Blood Count 4.97 10^6/uL (4.20-5.40); Red Cell Distribution Width 14.4 % (11.0-15.0)
[2024-05-04 13:53] LABS: Free T3 2.93 pg/mL (2.18-3.98); Thyroid Stimulating Hormone 7.144 uIU/mL (0.358-3.740)
[2024-05-04 15:01] LABS: Percent Iron Saturation 11.2 %
[2024-05-04 15:07] LABS: Free T4 0.97 ng/dL (0.76-1.46)
[2024-05-05 15:10] LABS: Thyroglobulin Antibody 18.4 IU/mL (0.0-0.9); Thyroid Peroxidase (TPO) Ab 67 IU/mL (0-34)
== END 2024-05-04 10:10 | disposition home or self-care (01) ==
LOC: LAB 10:11
PROVIDERS: PCP Family Medicine; Visit Provider Family Medicine
DX: D64.9 Anemia, unspecified (principal); R53.83 Other fatigue; E01.0 Iodine-deficiency related diffuse (endemic) goiter
CPT/HCPCS: 36415; 83540; 83550; 84439; 84443; 84481; 85025; 86376; 86800

== ENCOUNTER 2024-07-31 11:29 | Outpatient (OUT) | payer BC, SELFPAY ==
--- OUTSIDE RECORDS SUMMARY | 2024-07-31 11:32 | XMS_ITS | CCD ---
Author Organization [facility] CliniSym[facility] Care Team Providers Care Peg Driver Name Role Phone DR SHERLEY MITCHELL Primary [...] FOSTER Referring Unavailable EDELMIRA FOSTER Referring Unavailable Sherley Mitchell DO Primary Care Provider Sherley Mitchell DO Attending Provider [phone] Sherley Mitchell Attending Unavailable Sherley Mitchell Primary Care Unavailable Sherley Mitchell Admitting Unavailable Medications Current Medications Medication Drug Class(es) Dates Sig (Normalized) Sig (Original) Norethindrone-E.Estr adiol-Iron (2 sources) Estrogen Start: 05-05-2024 Norethindrone-E.Est radiol-Iron (Surekha Fe 07/19 ()) 1 mg-20 mcg (21)/75 mg (7) tablet Active TAB PO Daily May 05, 2024 12:00am Start: 04-16-2024 take 1 tablet by annel th in the morning, then take 0.05 tablet by mouth once norethindrone-e.estradioL-iron (JUNEL FE ,) 1 mg-20 mcg (21)/75 mg (7) per tablet Indications: Encounter for initial prescription of contraceptive pills Take 1 tablet by mouth in the morning. 84 tablet 04/16/2024 Active 168 hr ethinyl estradiol 0.23809 mg/hr / norelgestromin 0.70912 mg/hr transdermal system (2 sources) Progestin, Estrogen Start: 04-06-2024 End: 04-16-2024 apply 1 dose transdermal route every week norelgestromin-ethin.estradioL (XULANE) 150-35 mcg/24 hr Indications: Initial encounter for management of contraceptive patch use Place a new patch on the skin as directed once weekly for three weeks, followed by a patch-free week. 3 patch 3 04/06/2024 04/16/2024 Discontinued (Alternate therapy) levothyroxine sodium 0.025 mg oral tablet (2 sources) l-Thyroxine Start: 05-06-2024 End: 05-06-2024 take 1 tablet by mouth once daily in the morning Levothyroxine (Synthroid) 25 mcg tablet Active 25 MCG PO Daily May 06, 2024 10:56am take first thing in the morning on an empty stomach, do not eat or drink for 45 min after taking phentermine hydrochloride 37.5 mg oral tablet (16 sources) Sympathomimetic Amine Anorectic Start: 08-25-2023 End: 05-05-2024 take 1 tablet by mouth once daily in the morning Phentermine 37.5 mg tablet Active 37.5 MG PO Every morning May 05, 2024 10:20am Start: 07-30-2023 take 1 tablet by annel th once daily in the morning Adipex-P 37.5 MG 1 tablet Orally qd am for 30 days Jun, Active predniSONE 20 mg oral tablet (3 sources) Start: 07-04-2022 take 2 tablets by mouth once daily at mealtime predniSONE 20 MG 2 tablets Orally qd with food or milk for 5 days Jun, Active Completed/Discontinued Medications Medication Drug Class(es) Dates Sig (Normalized) Sig (Original) [id number] 200 actuat albuterol 0.09 mg/actuat metered dose inhaler (11 sources) beta2-Adrenergic Agonist Start: 10-28-2023 End: 02-05-2024 take 1 puff(s) by inhalation every four hours as needed Albuterol Sulfate 90 mcg/actuation HFA aerosol inhaler Discontinued 2 PUFF INHALATION Every 4 hours as needed October 28, 2023 7:30am February 05, 2024 9:42am Start: 09-19-2023 End: 10-28-2023 take 2 puff(s) by mouth every four hours as needed Albuterol Sulfate 90 mcg/actuation HFA aerosol inhaler Discontinued 0 .ROUTE .COMPLEX 8.5 September 19, 2023 12:02pm October 28, 2023 7:31am INHALE 2 PUFFS BY MOUTH EVERY 4 HOURS NEEDED Start: 08-25-2023 End: 09-19-2023 take 2 puff(s) by mouth every four hours for cough Albuterol Sulfate 90 mcg/actuation HFA aerosol inhaler Discontinued INHALATION August 25, 2023 12:00am September 19, 2023 12:02pm FreeTextSig: INHALE 2 PUFFS BY MOUTH EVERY 4 HOURS IF NEEDED FOR COUGH OR SHORTNESS OF BREATH; Note: Source Status: Continue; Provider: Paula Lepe ( ) take 2 puff(s) by in halation every six hours as needed for wheezing albuterol (PROVENTIL HFA;VENTOLIN HFA) 90 mcg/actuation inhaler Inhale 2 puffs every 6 (six) hours as needed for wheezing. Active take 2 puff(s) by mo ut every four hours for cough Albuterol Sulfate HFA 108 (90 Base) MCG/ACT INHALE 2 PUFFS BY MOUTH EVERY 4 HOURS IF NEEDED FOR COUGH OR SHORTNESS OF BREATH Active take 2 puff(s) by mo ut every four hours for cough Albuterol Sulfate HFA 108 (90 Base) MCG/ACT inhale 2 puffs by mouth and INTO THE LUNGS every 4 hours if needed for cough shortness of breath or wheezing for 16 Active amoxicillin 875 mg / clavulanate 125 mg oral tablet (1 source) Penicillin-class Antibacterial Start: 11-17-2023 End: 02-02-2024 take 1 tablet by mouth twice daily Amoxicillin-Pot Clavulanate 875-125 mg tablet Discontinued 1 TAB PO Twice daily 20 November 16, 2023 11:00pm February 02, 2024 10:40am azithromycin 250 mg oral tablet (4 sources) Macrolide Antimicrobial Start: 10-13-2023 End: 10-28-2023 Azithromycin 250 mg tablet Discontinued 0 PO .COMPLEX 6 October 12, 2023 11:00pm October 28, 2023 8:36am For 250 mg dose pack: take 500 mg today (day 1), then 250 mg for 4 days (days 2-5) PO Start: 07-04-2022 Azithromycin 2 50 MG 2 tablets on day 1 Orally then take 1 tablet daily on days 2-5 for 5 days Jun, Active Problems Active Problems Problem Classification Problem Date Documented Da te Episodic/Chronic Acute and chronic tonsillitis (6 sources) Amygdalolith; 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 Anxiety disorders (7 sources) Anxiety; Translations: [Anxiety disorder, unspecified] 11-17-2023 Chronic Appendicitis and other appendiceal conditions (4 sources) Unspecified acute appendicitis; Translations: [UNSPECIFIED ACUTE APPENDICITIS] Onset: 03-16-2021 Episodic Contraceptive and procreative management (3 sources) Encounter for other general counseling and advice on contraception; Translations: [Encounter for surveillance of transdermal patch hormonal contraceptive device] Onset: 04-06-2024 Episodic Deficiency and other anemia (5 sources) Iron deficiency anemia, unspecified; Translations: [Iron deficiency anemia, unspecified] Onset: 05-08-2020 Episodic Deficiency and other anemia (7 sources) Iron deficiency anemia; Translations: [Iron deficiency anemia, unspecified] 11-17-2023 Episodic Diabetes mellitus without complication (2 sources) Hyperglycemia; Translations: [Hyperglycemia, unspecified] 05-05-2024 Episodic Diseases of white blood cells (7 sources) Increased blood leukocyte number; Translations: [Elevated white blood cell count, unspecified] 11-17-2023 Chronic Esophageal disorders (7 sources) Acid reflux; Translations: [Gastro-esophageal reflux disease without esophagitis] 11-17-2023 Chronic Immunizations and screening for infectious disease (7 sources) Patient encounter status; Translations: [Encounter for screening for infections with a predominantly sexual mode of transmission] Onset: 09-30-2023 09-30-2023 Episodic Malaise and fatigue (1 source) Fatigue; Translations: [Other fatigue] 02-02-2024 Episodic Mood disorders (7 sources) Major depressive disorder, single episode, unspecified; Translations: [Depression] 11-17-2023 Chronic Nutritional deficiencies (7 sources) Vitamin D deficiency; Translations: [Vitamin D deficiency, unspecified] 11-17-2023 Chronic Other ear and sense organ disorders (6 sources) Hearing loss of left ear; Translations: [Unspecified hearing loss, left ear] Chronic Other ear and sense organ disorders (1 source) Unspecified hearing loss, left ear Chronic Other ear and sense organ disorders (1 source) Impacted cerumen, unspecified ear Episodic Other ear and sense organ disorders (2 sources) Impacted cerumen; Translations: [Impacted cerumen, right ear] 09-11-2023 Episodic Other gastrointestinal disorders (7 sources) Dysphagia; Translations: [Dysphagia, unspecified] 11-17-2023 Episodic Other gastrointestinal disorders (1 source) Dysphagia, [...] and metabolic disorders (2 sources) Obese class II; Translations: [Obesity, unspecified] Onset: 03-11-2023 03-11-2023 Chronic Other nutritional; endocrine; and metabolic disorders (2 sources) Obese class I; Translations: [Obesity (BMI 30.0-34.9)] Onset: 03-11-2023 04-06-2024 Chronic Other nutritional; endocrine; and metabolic disorders (3 sources) Abnormal weight gain; Translations: [Abnormal weight gain] Episodic Other nutritional; endocrine; and metabolic disorders (1 source) Weight increased; Translations: [Abnormal weight gain] 08-25-2023 Episodic Other screening for suspected conditions (not mental disorders or infectious disease) (2 sources) Thyroid hormone tests abnormal; Translations: [Other specified abnormal findings of blood chemistry] 05-05-2024 Episodic Other upper respiratory disease (7 sources) Allergic rhinitis; Translations: [Allergic rhinitis, unspecified] 11-17-2023 Chronic Other upper respiratory infections (2 sources) Acute pharyngitis; Translations: [Acute pharyngitis, unspecified] 02-05-2024 Episodic Residual codes; unclassified (1 source) Acquired absence of other specified parts of digestive tract; Translations: [History of laparoscopic appendectomy] 11-17-2023 Episodic Screening and history of mental health and substance abuse codes (2 sources) Encounter for screening for depression; Translations: [Standardized adult depression screening tool completed ] Onset: 04-06-2024 04-06-2024 Episodic Thyroid disorders (9 sources) Goiter; Translations: [Iodine-deficiency related diffuse (endemic) goiter] Onset: 05-13-2024 11-17-2023 Chronic Unclassified (1 source) CONTACT W/AND (SUSP) EXPOS COVID-19; Translations: [CONTACT W/AND (SUSP) EXPOS COVID-19] Onset: 03-22-2021 Unclassified (1 source) Gynecologic Exam Onset: 04-06-2024 Unclassified (1 source) Exposure to STD Onset: 06-18-2023 Past or Other Problems Problem Classification Problem Date Documented Date Episodic/Chronic Mood disorders (4 sources) Mood disorders Onset: 03-11-2023 Resolved: 04-06-2024 03-11-2023 Other female genital disorders (2 sources) Vaginal discharge; Translations: [Other specified noninflammatory disorders of vagina] Onset: 09-30-2023 09-30-2023 Episodic Other female genital disorders (2 sources) Other specified noninflammatory disorders of vagina; Translations: [Other specified noninflammatory disorders of vagina] Onset: 09-30-2023 Episodic Unclassified (1 source) Acute cough R05.1 Unclassified (4 sources) Onset: 03-11-2023 Resolved: 04-06-2024 03-11-2023 Results Test Name Value Interpretation Reference Range Facility thyroidon 05-13-2024 [place] [address] Ultrasound Report Signed Patient: Tonia Tidwell MR#: [id number] : 2000 Acct:[id number] Age/Sex: 24 / F ADM Date: 05/13/24 Loc: Room: Type: [facility] Attending Dr: Sherley Mitchell DO Ordering Provider: Sherley Mitchell DO Date of Service: 05/13/24 US/US thyroid: E06.3 - Autoimmune thyroiditis Copies to: Sherley Mitchell DO Thyroid Ultrasound HISTORY: Autoimmune thyroiditis COMPARISON: None The RIGHT lobe measures 4.5 x 1.4 x 1.6cm. LEFT lobe measures 4.1 x 1.0 x 1.3 cm. Isthmus has an AP dimension of 0.2cm. No thyroid nodule identified.. No microcalcifications identified. Symmetric blood flow of the thyroid gland identified. US/US thyroid IMPRESSION: No thyroid nodules. Impression dictated by: Diego Ventura M.D.05/13/2024 4:16 PM Dictation Location: [place] [address] Tech: Magda England Transcribed By: LEIDY 05/13/241615 Dictated By: Diego Ventura DO 05/13/241614 Signed By: 05/13/241615 Normal [facility] Basophils Auto (Bld) [#/Vol] on 05-04-2024 Basophils (Bld) [#/Vol] Automated basophil count 0.0-0.1 [facility] Basophils/100 WBC Auto (Bld) on 05-04-2024 Basophils/100 WBC (Bld) Automated basophil % 0.2-2.0 [facility] Eosinophils/100 WBC Auto (Bl d)on 05-04-2024 Eosinophils/100 WBC (Bld) Automated eosinophil % High 0.9-7.0 [facility] Erythrocyte distribution wid th Auto (RBC) [Ratio]on 05-04-2024 Erythrocyte distribution width (RBC) [Ratio] Erythrocyte distribution width [Ratio] by Automated count 11.0-15.0 [facility] Hematocrit Auto (Bld) [Volum e fraction]on 05-04-2024 Hematocrit (Bld) [Volume fraction] Hematocrit [Volume Fraction] of Blood by Automated count 36.0-48.0 [facility] Hemoglobin [Mass/volume] in Bloodon 05-04-2024 Hemoglobin (Bld) [Mass/Vol] Hemoglobin [Mass/volume] in Blood 12.0-16.0 [facility] Iron binding capacity [Mass/ volume] in Serum or Plasmaon 05-04-2024 Iron binding capacity [Mass/Vol] Iron binding capacity [Mass/volume] in Serum or Plasma High 250.0-450.0 [facility] Iron saturation [Mass Fracti on] in Serum or Plasmaon 05-04-2024 Iron saturation [Mass fraction] Iron saturation [Mass Fraction] in Serum or Plasma [facility] Laboratory - Chemistry and C hemistry - challengeon 05-04-2024 Free T4 [Mass/Vol] 0.97 ng/dL 0.76-1.46 [facility] Iron [Mass/Vol] 53.0 ug/dL 50.0-170.0 [facility] TSH Qn 7.144 m[IU]/L High 0.358-3.740 [facility] - Hematology and Cell countson 05-04-2024 Immature granulocytes/100 WBC (Bld) 0.1 % 0.0-0.5 [facility] Leukocytes [#/volume] correc anita for nucleated erythrocytes in Blood by Automated counon 05-04-2024 WBC corrected for nucl RBC Auto (Bld) [#/Vol] Leukocytes [#/volume] corrected for nucleated erythrocytes in Blood by Automated coun 4.0-11.0 [facility] Lymphocytes Auto (Bld) [#/Vo l]on 05-04-2024 Lymphocytes (Bld) [#/Vol] Lymphocytes [#/volume] in Blood by Automated count 1.2-3.8 [facility] Lymphocytes/100 WBC Auto (Bl d)on 05-04-2024 Lymphocytes/100 WBC (Bld) Lymphocytes/100 leukocytes in Blood by Automated count 20.5-60.0 [facility] MCH Auto (RBC) [Entitic mass ]on 05-04-2024 MCH (RBC) [Entitic mass] MCH [Entitic mass] by Automated count Low 26.7-34.0 [facility] MCHC Auto (RBC) [Mass/Vol]on 05-04-2024 MCHC (RBC) [Mass/Vol] MCHC [Mass/volume] by Automated count 29.9-35.2 [facility] MCV Auto (RBC) [Entitic vol] on 05-04-2024 MCV (RBC) [Entitic vol] MCV [Entitic volume] by Automated count Low 81.0-99.0 [facility] Monocytes Auto (Bld) [#/Vol] on 05-04-2024 Monocytes (Bld) [#/Vol] Automated blood monocyte count 0.3-0.8 [facility] Monocytes/100 WBC Auto (Bld) on 05-04-2024 Monocytes/100 WBC (Bld) Automated monocyte % 1.7-12.0 [facility] Neutrophils Auto (Bld) [#/Vo l]on 05-04-2024 Neutrophils (Bld) [#/Vol] Neutrophils [#/volume] in Blood by Automated count 1.4-6.5 [facility] Neutrophils/100 WBC Auto (Bl d)on 05-04-2024 Neutrophils/100 WBC (Bld) Automated neutrophil % 43.0-75.0 [facility] No Panel Informationon 05-04 Eosinophils # (Auto) 0.7 10 3/uL 0.0-0.7 [facility] Free Triiodothyronine 2.93 pg/mL 2.18-3.98 [facility] Immature Granulocyte # (Auto) 0.01 10 3/uL 0.00-0.03 [facility] Platelet mean volume Auto (B ld) [Entitic vol]on 05-04-2024 Platelet mean volume (Bld) [Entitic vol] Platelet mean volume [Entitic volume] in Blood by Automated count 9.5-13.5 [facility] Platelets Auto (Bld) [#/Vol] on 05-04-2024 Platelets (Bld) [#/Vol] Platelets [#/volume] in Blood by Automated count 150-450 [facility] RBC Auto (Bld) [#/Vol]on RBC (Bld) [#/Vol] Erythrocytes [#/volu me] in Blood by Automated count 4.20-5.40 [facility] Serum or plasma thyroglobuli n antibody assay (units/volume)on 05-04-2024 Thyroglobulin Ab Qn Serum or plasma thyroglobulin antibody assay (units/volume) Abnormal 0.0-0.9 [facility] Comment on above: Thyroglobulin Antibo dy measured by AppJetMethodologyIt should be noted that the presence of thyroglobulinantibodies may not be pathogenic nor diagnostic, especiallyat very low levels. The assay jewelry cutter has found thatfour percent of individuals without evidence of thyroiddisease or autoimmunity will have positive TgAb levels upto 4 IU/mL.Performed at: [employer] [facility] [id number] [place], [place] [id number] Director: Jose Eduardo Sweet PhD, Phone: [phone] Serum or plasma thyroperoxid ase antibody assay (units/volume)on 05-04-2024 TPO Ab Qn Serum or plasma thyroperoxidase antibody assay (units/volume) Abnormal 0-34 [facility] CHLAMYDIA/GC BY PCRon 2023 CHLAMYDIA/GC BY PCR [...] are dependent on adequate specimen collection. Normal [facility] Comment on above: Performed By: #### C GS #### [facility] ([id number]) [address] [place] [address], [address] [place] [address] POCT , urineon Beta HCG ( test) Ql (U) Negative [facility] Internal Rn Quality Check Completed and Passed Yes [facility] Interpretation and review of laboratory results Normal [facility] TRICHOMONAS PCRon 04-06-2024 TRICHOMONAS PCR SPECIMEN SOURCE CERVICAL TRICHOMONAS PCR Not detected (qualifier value) Trichomonas vaginalis not detected NOTE Assay methodology is nucleic acid amplification by real-time PCR for detection of Trichomonas vaginalis DNA performed on [employer] System. Normal [facility] Comment on above: Performed By: #### T RKPCR #### [facility] ([id number]) [address], [address] [place] [address] Basophils Auto (Bld) [#/Vol] on 03-02-2024 Basophils (Bld) [#/Vol] Automated basophil count 0.0-0.1 [facility] Basophils/100 WBC Auto (Bld) on 03-02-2024 Basophils/100 WBC (Bld) Automated basophil % 0.2-2.0 [facility] Eosinophils/100 WBC Auto (Bl d)on 03-02-2024 Eosinophils/100 WBC (Bld) Automated eosinophil % High 0.9-7.0 [facility] Erythrocyte distribution wid th Auto (RBC) [Ratio]on 03-02-2024 Erythrocyte distribution width (RBC) [Ratio] Erythrocyte distribution width [Ratio] by Automated count 11.0-15.0 [facility] Estimated glomerular filtrat ion rate (GFR) non- Americanon 03-02-2024 GFR/1.73 sq M.predicted among non-blacks MDRD (S/P/Bld) [Vol rate/Area] Estimated glomerular filtration rate (GFR) non- >=60 [facility] Globulin Calc (S) [Mass/Vol] on 03-02-2024 Globulin (S) [Mass/Vol] Serum globulin measurement by calculation (mass/volume) [facility] Hematocrit Auto (Bld) [Volum e fraction]on 03-02-2024 Hematocrit (Bld) [Volume fraction] Hematocrit [Volume Fraction] of Blood by Automated count 36.0-48.0 [facility] Hemoglobin [Mass/volume] in Bloodon 03-02-2024 Hemoglobin (Bld) [Mass/Vol] Hemoglobin [Mass/volume] in Blood Low 12.0-16.0 [facility] Iron binding capacity [Mass/ volume] in Serum or Plasmaon 03-02-2024 Iron binding capacity [Mass/Vol] Iron binding capacity [Mass/volume] in Serum or Plasma 250.0-450.0 [facility] Iron saturation [Mass Fracti on] in Serum or Plasmaon 03-02-2024 Iron saturation [Mass fraction] Iron saturation [Mass Fraction] in Serum or Plasma [facility] - Chemistry and C hemistry - challengeon 03-02-2024 Albumin [Mass/Vol] 3.8 g/dL 3.4-5.0 [facility] ALP [Catalytic activity/Vol] 48 U/L 46-116 [facility] ALT [Catalytic activity/Vol] 35 U/L 14-59 [facility] AST [Catalytic activity/Vol] 21 U/L 15-37 [facility] Bilirubin [Mass/Vol] 0.3 mg/dL 0.2-1.0 [facility] Calcium [Mass/Vol] 8.8 mg/dL 8.5-10.1 [facility] Chloride [Moles/Vol] 103 mmol/L 98-107 [facility] CO2 [Moles/Vol] 26.4 mmol/L 21.0-32.0 [facility] Creatinine [Mass/Vol] 0.85 mg/dL 0.55-1.02 [facility] Ferritin [Mass/Vol] 7.0 ng/mL Low 8.0-252.0 [facility] GFR/1.73 sq M.predicted MDRD (S/P/Bld) [Vol rate/Area] mL/min/{1.73_m2} >=60 [facility] Glucose [Mass/Vol] 102 mg/dL 74-106 [facility] Iron [Mass/Vol] 26.0 ug/dL Low 50.0-170.0 [facility] Potassium [Moles/Vol] 4.1 mmol/L 3.5-5.1 [facility] Protein [Mass/Vol] 7.0 g/dL 6.4-8.2 [facility] Sodium [Moles/Vol] 141 mmol/L 136-145 [facility] TSH Qn 5.893 m[IU]/L High 0.358-3.740 [facility] Urea nitrogen [Mass/Vol] 7.0 mg/dL 7.0-18.0 [facility] Urea nitrogen/Creatinine [Mass ratio] 8.2 mg/mg [facility] - Hematology and Cell countson 03-02-2024 Immature granulocytes/100 WBC (Bld) 0.3 % 0.0-0.5 [facility] Leukocytes [#/volume] correc anita for nucleated erythrocytes in Blood by Automated counon 03-02-2024 WBC corrected for nucl RBC Auto (Bld) [#/Vol] Leukocytes [#/volume] corrected for nucleated erythrocytes in Blood by Automated coun 4.0-11.0 [facility] Lymphocytes Auto (Bld) [#/Vo l]on 03-02-2024 Lymphocytes (Bld) [#/Vol] Lymphocytes [#/volume] in Blood by Automated count 1.2-3.8 [facility] Lymphocytes/100 WBC Auto (Bl d)on 03-02-2024 Lymphocytes/100 WBC (Bld) Lymphocytes/100 leukocytes in Blood by Automated count Low 20.5-60.0 [facility] MCH Auto (RBC) [Entitic mass ]on 03-02-2024 MCH (RBC) [Entitic mass] MCH [Entitic mass] by Automated count Low 26.7-34.0 [facility] MCHC Auto (RBC) [Mass/Vol]on 03-02-2024 MCHC (RBC) [Mass/Vol] MCHC [Mass/volume] by Automated count 29.9-35.2 [facility] MCV Auto (RBC) [Entitic vol] on 03-02-2024 MCV (RBC) [Entitic vol] MCV [Entitic volume] by Automated count 81.0-99.0 [facility] Monocytes Auto (Bld) [#/Vol] on 03-02-2024 Monocytes (Bld) [#/Vol] Automated blood monocyte count 0.3-0.8 [facility] Monocytes/100 WBC Auto (Bld) on 03-02-2024 Monocytes/100 WBC (Bld) Automated monocyte % 1.7-12.0 [facility] Neutrophils Auto (Bld) [#/Vo l]on 03-02-2024 Neutrophils (Bld) [#/Vol] Neutrophils [#/volume] in Blood by Automated count 1.4-6.5 [facility] Neutrophils/100 WBC Auto (Bl d)on 03-02-2024 Neutrophils/100 WBC (Bld) Automated neutrophil % 43.0-75.0 [facility] No Panel Informationon 03-02 Eosinophils # (Auto) 0.5 10 3/uL 0.0-0.7 [facility] Immature Granulocyte # (Auto) 0.02 10 3/uL 0.00-0.03 [facility] Platelet mean volume Auto (B ld) [Entitic vol]on 03-02-2024 Platelet mean volume (Bld) [Entitic vol] Platelet mean volume [Entitic volume] in Blood by Automated count 9.5-13.5 [facility] Platelets Auto (Bld) [#/Vol] on 03-02-2024 Platelets (Bld) [#/Vol] Platelets [#/volume] in Blood by Automated count 150-450 [facility] RBC Auto (Bld) [#/Vol]on RBC (Bld) [#/Vol] Erythrocytes [#/volu me] in Blood by Automated count 4.20-5.40 [facility] Serum or plasma albumin/glob ulin mass ratioon 03-02-2024 Albumin/Globulin [Mass ratio] Serum or plasma albumin/globulin mass ratio [facility] Serum or plasma anion gap de terminationon 03-02-2024 Anion gap [Moles/Vol] Serum or plasma anion gap determination [facility] CHLAMYDIA/GC BY PCRon 2023 CHLAMYDIA/GC BY PCR [...] are dependent on adequate specimen collection. [facility] Comment on above: Performed By: #### C #### [facility] ([id number]) [address] [place] [address], [address] [place] [address] VAGINITIS PANEL PCRon 2023 VAGINITIS PANEL PCR [...] with clinical presentation to determine patient diagnosis. [facility] Comment on above: Performed By: #### V PPCR #### [facility] ([id number]) [address] [place] [address], [address] [place] [address] CHLAMYDIA/GC BY PCRon 2022 CHLAMYDIA/GC BY PCR [...] results are dependent on adequate specimen collection. [facility] Comment on above: Performed By: #### C GS #### [facility] ([id number]) [address] [place] [address], [address] [place] [address] VAGINITIS PANEL PCRon 2022 VAGINITIS PANEL PCR [...] with clinical presentation to determine patient diagnosis. [facility] Comment on above: Performed By: #### V PPCR #### [facility] ([id number]) [address], [address] [place] [address] ASYMPTOMATIC COVID-19 ANTIGE Non 03-16-2021 EUA Statement SEE BELOW Normal [facility] Comment on above: Result Comment: This test [...] sooner. Performed By: #### C VDAGA #### [facility] [address] [place] [address] Dr. Shasta Castro SARS-CoV-2 (COVID-19) RNA DAMIEN+probe Ql (Unsp spec) Negative Normal NEGATIVE [facility] Comment on above: Result Comment: Nega tive results are presumptive. They do not preclude infection and should not be used as the sole basis for treatment decisions. Additional confirmatory testing by a molecular method should be considered. Performed By: #### C VDAGA #### [facility] [address] [place] [address] Dr. Shasta Castro CBC AUTO DIFFon 03-16-2021 BASO # 0.1 103/ul Normal 0.0-0.1 [facility] Comment on above: Performed By: #### C BC ####[facility] [address] [place] [id number]. Shasta Castro Basophils/100 WBC (Bld) 0.7 % Normal 0.2-2.0 [facility] Comment on above: Performed By: #### C BC ####[facility] [address] [place] [id number]. Shasta Castro EO # 0.5 103/ul Normal 0.0-0.7 [facility] Comment on above: Performed By: #### C BC ####[facility] [address] [place] [address]Dr. Shasta Castro Eosinophils/100 WBC (Bld) 6.2 % Normal 0.9-7.0 [facility] Comment on above: Performed By: #### C BC ####[facility] F[address] [place], [place] [address]Dr. Shasta Castro Erythrocyte distribution width (RBC) [Ratio] 13.8 % Normal 11.0-15.0 [facility] Comment on above: Performed By: #### C BC ####[facility] [address] [place], [place] [address]Dr. Shasta Castro Hematocrit (Bld) [Volume fraction] 37.8 % Normal 36.0-48.0 [facility] Comment on above: Performed By: #### C BC ####[facility] Nut[address] [place], [place] [address]Dr. Shasta Castro Hemoglobin (Bld) [Mass/Vol] 11.8 g/dL Critically low 12.0-16.0 [facility] Comment on above: Performed By: #### C BC ####[facility] [address] [place], [place] [address]Dr. Shasta Castro IG # 0.03 10e3/ul Normal 0.00-0.03 [facility] Comment on above: Performed By: #### C BC ####[facility] [address] [place], [place] [address]Dr. Shasta Castro IG % 0.4 % Normal 0.0-0.5 [facility] Comment on above: Performed By: #### C BC ####[facility] T[address] [place], [place] [address]DrNaren Shasta Matthew LYMPH # 1.8 103/ul Normal 1.2-3.8 [facility] Comment on above: Performed By: #### C BC ####[facility] [address] [place], [place] [address]Dr. Shasta Castro Lymphocytes/100 WBC (Bld) 21.2 % Normal 20.5-60.0 [facility] Comment on above: Performed By: #### C BC ####[facility] [address] [place] [address]DrNaren Castro MANUAL DIFF REQ NO Normal [facility] Comment on above: Performed By: #### C BC ####[facility] [address] [place] [address]DrNaren Castro MCH (RBC) [Entitic mass] 24.7 pg Critically low 26.7-34.0 [facility] Comment on above: Performed By: #### C BC ####[facility] [address] [place], [place] [address]DrNaren Castro MCHC (RBC) [Mass/Vol] 31.2 g/dL Normal 29.9-35.2 [facility] Comment on above: Performed By: #### C BC ####[facility] [address] [place], [place] [address]DrNaren Castro MCV (RBC) [Entitic vol] 79.2 fL Critically low 81.0-99.0 [facility] Comment on above: Performed By: #### C BC ####[facility] [address] [place], [place] [address]DrNaren Castro MONO # 0.6 103/ul Normal 0.3-0.8 [facility] Comment on above: Performed By: #### C BC ####[facility] [address] [place], [place] [address]DrNaren Castro Monocytes/100 WBC (Bld) 7.5 % Normal 1.7-12.0 [facility] Comment on above: Performed By: #### C BC ####[facility] [address] [place], [place] [address]DrNaren Castro NEUT # 5.4 103/ul Normal 1.4-6.5 [facility] Comment on above: Performed By: #### C BC ####[facility] [address] [place], [place] [address]DrNaren Castro Neutrophils/100 WBC (Bld) 64.0 % Normal 43.0-75.0 [facility] Comment on above: Performed By: #### C BC ####[facility] [address] [place] [id number]. Shasta Castro Platelet mean volume (Bld) [Entitic vol] 9.6 fL Normal 9.5-13.5 [facility] Comment on above: Performed By: #### C BC ####[facility] [address] [place] [id number]. Shasta Castro PLT 354 103/ul Normal 150-450 [facility] Comment on above: Performed By: #### C BC ####[facility] [address] [place] [address]Dr. Shasta Castro RBC 4.77 106/ul Normal 4.20-5.40 [facility] Comment on above: Performed By: #### C BC ####[facility] [address] [place] [id number]. Shasta Castro WBC 8.4 103/ul Normal 4.0-11.0 [facility] Comment on above: Performed By: #### C BC ####[facility] [address] [place] [id number]. Shasta Castro CT ABD/PELV W CONon 03-16-[address] ABD/PELV W CON CT ABDOMEN AND PELVI S WITH CONTRAST CLINICAL: Right lower quadrant pain [...] SHERLEY VALDEZ Date: 2021-03-16 12:06 Normal [facility]28 SARS-CoV-2 (COVID-19) RNA DAMIEN+probe Ql (Unsp spec) Not detected Normal NOT DETECTED [facility] Comment on above: Result Comment: This test is not yet approved or cleared by the [place] FDA. When there are no FDA-approved or cleared tests available, and other criteria are met, FDA can make tests available under an emergency access mechanism called an Emergency Use Authorization (EUA). The EUA for this test is supported by the [place] of Health and Human Service's (HHS's) declaration [...] with SARS-CoV-2. Performed By: #### C VDTB ####[facility] [address] [place] [address]Dr. Shasta Castro ER URINE PROFILEon 1 Bilirubin Ql (U) Negative Normal NEGATIVE [facility] Comment on above: Performed By: #### E RUR, PREGU #### [facility] [address] [place] [address] Dr. Shasta Castro Clarity (U) CLEAR Normal CLEAR [facility] Comment on above: Performed By: #### E RUR, PREGU #### [facility] [address] [place] [address] Dr. Shasta Castro Color (U) LT. YELLOW Normal YELLOW [facility] Comment on above: Performed By: #### E RUR, PREGU #### [facility] [address] [place] [address] Dr. Shasta Castro ERURUTH A micrscopic examina tion will be performed if indicated. Normal [facility] Comment on above: Performed By: #### E RUR, PREGU #### [facility] [address] [place] [address] Dr. Shasta Castro Glucose Ql (U) Negative Normal NEGATIVE [facility] Comment on above: Performed By: #### E RUR, PREGU #### [facility] [address] [place] [address] Dr. Shasta Castro Hemoglobin Ql (U) Negative Normal NEGATIVE [facility] Comment on above: Performed By: #### E RUR, PREGU #### [facility] [address] [place] [address] Dr. Shasta Castro Ketones Ql (U) Negative Normal NEGATIVE [facility] Comment on above: Performed By: #### E RUR, PREGU #### [facility] [address] [place] [address] Dr. Shasta Castro LEUKOCYTES TRACE Abnormal NEGATIVE [facility] Comment on above: Performed By: #### E RUR, PREGU #### [facility] [address] [place] [address] Dr. Shasta Castro Nitrite Ql (U) Negative Normal NEGATIVE [facility] Comment on above: Performed By: #### E RUR, PREGU #### [facility] [address] [place] [address] Dr. Shasta Castro pH (U) 6.0 [pH] Normal 5-9 [facility] Comment on above: Performed By: #### E RUR, PREGU #### [facility] [address] [place] [address] Dr. Shasta Castro SPEC GRAVITY 1.025 Normal 1.005-<=1.02 5 [facility] Comment on above: Performed By: #### E RUR, PREGU #### [facility] [address] [place] [address] Dr. Shasta Castro UA PROTEIN Negative Normal NEGATIVE/ TRACE [facility] Comment on above: Performed By: #### E RUR, PREGU #### [facility] [address] [place] [address] Dr. Shasta Castro UR MICRO IND NOT INDICATED Normal [facility] Comment on above: Performed By: #### E RUR, PREGU #### [facility] [address] [place] [address] Dr. Shasta Castro Urobilinogen Qn (U) 0.2 {Ester'U}/dL Normal 0.2 - 1. 0 [facility] Comment on above: Performed By: #### E RUR, PREGU #### [facility] [address] [place] [address] Dr. Shasta Castro URon 03-16-2021 , QUAL Negative Normal NEGATIVE [facility] Comment on above: Performed By: #### E RUR, PREGU #### [facility] [address] [place] [address] Dr. Shasta Castro PROF CHEM 8 (BAS METB)on Anion gap [Moles/Vol] 13.9 mmol/L Normal [facility] Comment on above: Performed By: #### B MP #### [facility] [address] [place] [address] Dr. Shasta Castro Calcium [Mass/Vol] 9.1 mg/dL Normal 8.4-10.2 [facility] Comment on above: Performed By: #### B MP #### [facility] [address] [place] [address] Dr. Shasta Castro Chloride [Moles/Vol] 103 mmol/L Normal 98-107 [facility] Comment on above: Performed By: #### B MP #### [facility] [address] [address] [address] Shasta Castro CO2 [Moles/Vol] 24.8 mmol/L Normal 22.0-30.0 [facility] Comment on above: Performed By: #### B MP #### [facility] [address] [place] [address] Dr. Shasta Castro Creatinine [Mass/Vol] 0.88 mg/dL Normal 0.52-1.04 [facility] Comment on above: Performed By: #### B MP #### [facility] [address] [place] [address] Dr. Shasta Castro EGFR-AF PANAMANIAN >60 Normal >=60 [facility] Comment on above: Performed By: #### B MP #### [facility] [address] [place] [address] Dr. Shasta Castro EGFR-NON AF PANAMANIAN >60 Normal >=60 [facility] Comment on above: Performed By: #### B MP #### [facility] [address] [place] [address] Dr. Shasta Castro Glucose [Mass/Vol] 88 mg/dL Normal 74-106 [facility] Comment on above: Performed By: #### B MP #### [facility] [address] [place] [address] Dr. Shasta Castro Potassium [Moles/Vol] 3.7 mmol/L Normal 3.4-5.0 [facility] Comment on above: Performed By: #### B MP #### [facility] [address] [place] [address] Dr. Shasta Castro Sodium [Moles/Vol] 138 mmol/L Normal 137-145 [facility] Comment on above: Performed By: #### B MP #### [facility] [address] [place] [address] Dr. Shasta Castro Urea nitrogen [Mass/Vol] 12.0 mg/dL Normal 7.0-17.0 [facility] Comment on above: Performed By: #### B MP #### [facility] [address] [place] [address] Dr. Shasta Castro Urea nitrogen/Creatinine [Mass ratio] 13.6 mg/mg Normal [facility] Comment on above: Performed By: #### B MP #### [facility] [address] [place] [address] Dr. Shasta Castro CBC AUTO DIFFon 05-08-2020 BASO # 0.1 103/ul Normal 0.0-0.1 [facility] Comment on above: Performed By: #### C BC #### [facility] [address] [place] [address] Maged Enlda Basophils/100 WBC (Bld) 0.7 % Normal 0.2-2.0 [facility] Comment on above: Performed By: #### C BC #### [facility] [address] [place] [address] Maged Nelda EO # 0.6 103/ul Normal 0.0-0.7 [facility] Comment on above: Performed By: #### C BC #### [facility] [address] [place] [address] Maged Nelda Eosinophils/100 WBC (Bld) 6.4 % Normal 0.9-7.0 [facility] Comment on above: Performed By: #### C BC #### [facility] [address] [place] [address] Maged Nelda Erythrocyte distribution width (RBC) [Ratio] 13.3 % Normal 11.0-15.0 [facility] Comment on above: Performed By: #### C BC #### [facility] [address] [place] [address] Maged Nelda Hematocrit (Bld) [Volume fraction] 39.5 % Normal 36.0-48.0 [facility] Comment on above: Performed By: #### C BC #### [facility] [address] [id number] Maged Nelda Hemoglobin (Bld) [Mass/Vol] 12.3 g/dL Normal 12.0-16.0 [facility] Comment on above: Performed By: #### C BC #### [facility] [address] [place], [place] [address] Maged Nelda IG # 0.03 10e3/ul Normal 0.00-0.03 [facility] Comment on above: Performed By: #### C BC #### [facility] [address] [place] [address] Maged Nelda IG % 0.3 % Normal 0.0-0.5 [facility] Comment on above: Performed By: #### C BC #### [facility] [address] [place] [address] Maged Nelda LYMPH # 2.7 103/ul Normal 1.2-3.8 [facility] Comment on above: Performed By: #### C BC #### [facility] [address] [place] [address] Maged Nelda Lymphocytes/100 WBC (Bld) 27.0 % Normal 20.5-60.0 [facility] Comment on above: Performed By: #### C BC #### [facility] [address] [place] [address] Maged Nelda MANUAL DIFF REQ NO Normal [facility] Comment on above: Performed By: #### C BC #### [facility] [address] [place], [place] [address] Maged Nelda MCH (RBC) [Entitic mass] 25.5 pg Critically low 26.7-34.0 [facility] Comment on above: Performed By: #### C BC #### [facility] [address] [place], [place] [address] Maged Nelda MCHC (RBC) [Mass/Vol] 31.1 g/dL Normal 29.9-35.2 [facility] Comment on above: Performed By: #### C BC #### [facility] [address] [id number] Magedwalter Lutz MCV (RBC) [Entitic vol] 81.8 fL Normal 81.0-99.0 [facility] Comment on above: Performed By: #### C BC #### [facility] [address] [id number] Magedwalter Lutz MONO # 0.5 103/ul Normal 0.3-0.8 [facility] Comment on above: Performed By: #### C BC #### [facility] [address] [place], [place] [address] Maged Nelda Monocytes/100 WBC (Bld) 5.4 % Normal 1.7-12.0 [facility] Comment on above: Performed By: #### C BC #### [facility] [address] [place] [address] Magedwalter Campoen NEUT # 6.0 103/ul Normal 1.4-6.5 [facility] Comment on above: Performed By: #### C BC #### [facility] [address] [place], [place] [address] Maged Lutz Neutrophils/100 WBC (Bld) 60.2 % Normal 43.0-75.0 [facility] Comment on above: Performed By: #### C BC #### [facility] [address] [place], [place] [address] Magedwalter Lutz Platelet mean volume (Bld) [Entitic vol] 9.2 fL Critically low 9.5-13.5 [facility] Comment on above: Performed By: #### C BC #### [facility] [address] [place], [place] [address] Maged Nelda PLT 411 103/ul Normal 150-450 [facility] Comment on above: Performed By: #### C BC #### [facility] [address] [place], [place] [address] Maged Nelda RBC 4.83 106/ul Normal 4.20-5.40 [facility] Comment on above: Performed By: #### C BC #### [facility] [address] [place], [place] [address] Maged Nelda WBC 9.9 103/ul Normal 4.0-11.0 [facility] Comment on above: Performed By: #### C BC #### [facility] [address] [place] [address] Maged Lutz FERRITINon 05-08-2020 Ferritin [Mass/Vol] 14.0 ng/mL Normal 6.2-137.0 [facility] Comment on above: Performed By: #### F ERR, FETIBC #### [facility] [address] [place] [address] Maged Nelda IRON AND TIBCon 05-08-2020 % SATURATION 6.7 % Normal [facility] Comment on above: Performed By: #### F ERR, FETIBC #### [facility] [address] [place] [address] Maged Lutz Iron [Mass/Vol] 29.0 ug/dL Critically low 37.0-170.0 [facility] Comment on above: Performed By: #### F ERR, FETIBC #### [facility] [address] [place] [address] Maged Lutz TIBC DIRECT 433.0 ug/dL Normal 261.0-497.0 [facility] Comment on above: Performed By: #### F ERR, FETIBC #### [facility] [address] [place] [address] Maged Lutz Auth for Release of Medical Recordson 12-24-2019 Auth for Release of Medical Records [id number]:127 Normal [facility] Chlam & GC, DNAon 05-13-2019 Chlamydia, DNA Negative Normal Negative [facility] Comment on above: Result Comment: The APTIMA [...] to the clinician. Performed By: #### C [id number] #### [address] [address] Gonorrhea, DNA Negative Normal Negative [facility] Comment on above: Result Comment: The APTIMA [...] to the clinician. Performed By: #### C [id number] #### [address] [address] Coding Summary.on 03-11-2019 Coding Summary. CODING DATE: 019 [facility] STATUS: Home (Routine DC) PAYOR: [facility] [place] ADMIT DX: REASON FOR VISIT DX: Z01.419 [...] Miner Date Saved: 03/11/2019 04:00 pm Normal [facility] Gynecology Office/Clinic Not samantha 03-05-2019 Gynecology Office/Clinic [...] w/rflx HPV HR 2. 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] Family History Family history is negative Normal [facility] Comment on above: Result Comment: Elec tronically Signed By: Chrissy SIMPSON CNP\Date and Time Signed: 03/05/19 14:01 EDT Chlam & José WYATT 07-23-2018 Chlamydia, DNA Positive Critically abnormal Negative [facility] Comment on above: Result Comment: The APTIMA [...] by: Rachelle Licona RN, [facility] (First, Last, Title, Location) Performed By: #### C [id number] #### [place] [address] Gonorrhea, DNA Negative Normal Negative [facility] Comment on above: Result Comment: The APTIMA [...] to the clinician. Performed By: #### C [id number] #### [place] [id number] Vital Signs Date Time Vital Sign Value Performing Clinician Facility 05-05-2024 09:53-0500 Body mass index (BMI) [Ratio] 33.3 kg/m2 Sherley Mitchell DO Work Phone: [facility] 05-05-2024 09:53-0500 Body temperature 97.5 [degF] Sherley Mitchell DO Work Phone: [facility] 05-05-2024 09:53-0500 Diastolic blood pressure 70 mm[Hg] Sherley Mitchell DO Work Phone: [facility] 05-05-2024 09:53-0500 Heart rate 98 /min Sherley Mitchell DO Work Phone: [facility] 05-05-2024 09:53-0500 SaO2% (BldA) [Mass fraction] 98 % Sherley Mitchell DO Work Phone: [facility] 05-05-2024 09:53-0500 Systolic blood pressure 114 mm[Hg] Sherley Mitchell DO Work Phone: [facility] 05-05-2024 08:53-0500 Body height 157.48 cm Sherley Mitchell DO Work Phone: [facility] 05-05-2024 08:53-0500 Body weight 82.55 kg Sherley Mitchell DO Work Phone: [facility] 04-06-2024 09:35-0400 Body height 157.5 cm General [...] Body height 156.21 cm Sherley Mitchell Other [facility] Other 07-30-2023 13:00-0500 Body mass index (BMI) [Ratio] 37.55 kg/m2 Sherley Mitchell Other [facility] Other 07-30-2023 13:00-0500 Body temperature 98.6 [degF] Sherley Mitchell Other [facility] Other 07-30-2023 13:00-0500 Body weight 91.63 kg Sherley Mitchell Other [facility] Other 07-30-2023 13:00-0500 Diastolic blood pressure 80 mm[Hg] Sherley Mitchell Other [facility] Other 07-30-2023 13:00-0500 Respiratory rate 18 /min Sherley Mitchell Other [facility] Other 07-30-2023 13:00-0500 SaO2% (BldA) [Mass fraction] 97 % Sherley Mitchell Other [facility] Other 07-30-2023 13:00-0500 Systolic blood pressure 128 mm[Hg] Sherley Mitchell Other [facility] Other 07-24-2023 09:30-0500 Body weight 92.99 kg Sherley Mitchell Other [facility] Other 04-17-2023 10:30-0400 Body height 156.21 cm Sherley Mitchell Other [facility] Other 03-12-2023 10:30-0400 Body height 156.21 cm Sherley Mitchell Other [facility] Other 03-12-2023 10:30-0400 Body mass index (BMI) [Ratio] 37.17 kg/m2 Sherley Mitchell Other [facility] Other 03-12-2023 10:30-0400 Body temperature 98 [degF] Sherley Mitchell Other [facility] Other 03-12-2023 10:30-0400 Body weight 90.72 kg Sherley Mitchell Other [facility] Other 03-12-2023 10:30-0400 Diastolic blood pressure 76 mm[Hg] Sherley Mitchell Other [facility] Other 03-12-2023 10:30-0400 Respiratory rate 18 /min Sherley Mitchell Other [facility] Other 03-12-2023 10:30-0400 SaO2% (BldA) [Mass fraction] 98 % Sherley Mitchell Other [facility] Other 03-12-2023 10:30-0400 Systolic blood pressure 116 mm[Hg] Sherley Mitchell Other [facility] Other Encounters Encounter Date Encounter Type Care Provider Facility Start: 05-13-2024 End: 05-13-2024 Patient encounter procedure Sherley Mitchell DO Work Phone: [facility] [place] Work Phone: Start: 05-13-2024 End: 05-13-2024 ambulatory Sherley Mitchell DO Work Phone: [facility] Work Phone: Start: 05-05-2024 End: 05-05-2024 Patient encounter procedure Sherley Mitchell DO Work Phone: [facility] Work Phone: Start: 05-04-2024 Non-patient / Non-visit Sherley Paula DO Work Phone: [facility] Work Phone: Start: 04-16-2024 End: 04-16-2024 Orders Only Edelmira M Cristian WORKSHOP MANAGER-PRODUCTION QUALITY MANAGER Work Phone: [facility] Comment on above: Encounter for initia l prescription of contraceptive pills (Primary Dx) Start: 04-06-2024 End: 04-06-2024 ambulatory EDELMIRA Downing CRISTIAN [facility] Start: 04-06-2024 End: 04-06-2024 Patient encounter procedure [facility] Start: 04-06-2024 End: 04-06-2024 Periodic preventive med est patient 18-39 yrs [facility] Ob Entry Level [facility] Comment on above: Well woman exam with routine gynecological exam (Primary Dx); Screening examination for STD (sexually transmitted disease); General counselling and advice on contraception; Initial encounter for management of contraceptive patch use; Standardized adult depression screening tool completed Start: 04-06-2024 End: 04-06-2024 ambulatory [facility] Start: 04-06-2024 Encounter for gynecological examination (general) (routine) without abnormal findings [facility] Start: 03-02-2024 Non-patient / Non-visit Sherley Mitchell DO Work Phone: [facility] Physician [facility] Work Phone: Start: 10-10-2023 End: 10-10-2023 Telephone encounter Fadia Medrano CMA [facility] Obstetric[facility]Gynecology Start: 09-30-2023 End: 09-30-2023 ambulatory EDELMIRA Downing MYRACHARLEEN [facility] Start: 09-30-2023 End: 09-30-2023 Office outpatient visit 15 minutes [facility] Ob Entry Level [facility] Comment on above: Vaginal discharge (P rimary Dx); Screen for STD (sexually transmitted disease) Start: 09-30-2023 End: 09-30-2023 ambulatory [facility] Start: 07-30-2023 End: 07-30-2023 ambulatory Sherley Mitchell Other [facility] Other Start: 07-30-2023 Nursing evaluation o f patient and report Sherley Mitchell [facility] Start: 07-24-2023 End: 07-24-2023 ambulatory Sherley Mitchell Other [facility] Other Start: 07-24-2023 Office outpatient vi sit 15 minutes Sherley Mitchell [facility] Start: 07-03-2023 End: 07-03-2023 ambulatory Sherley Mitchell Other [facility] Other Start: 07-03-2023 Telephone encounter Sherley Mitchell [facility] Start: 06-18-2023 End: 06-18-2023 ambulatory [facility] Start: 06-18-2023 End: 06-18-2023 ambulatory [facility] Start: 05-05-2023 End: 05-05-2023 ambulatory Sherley Mitchell Other [facility] Other Start: 05-05-2023 Telephone encounter Sherley Mitchell [facility] Start: 04-17-2023 End: 04-17-2023 ambulatory Sherley Mitchell Other [facility] Other Start: 04-17-2023 Office outpatient vi sit 10 minutes Sherley Mitchell [facility] Start: 03-12-2023 End: 03-12-2023 ambulatory Sherley Mitchell Other [facility] Other Start: 03-12-2023 Office outpatient vi sit 10 minutes Sherley Mitchell [facility] Start: 03-16-2021 End: 03-16-[address] SHERLEY MITCHELL Facility:[facility]1 Start: 05-08-2020 End: 05-09-[address] SHERLEY MITCHELL Facility:[facility] Procedures Date Procedure Procedure Detail Performing Clinician Start: 05-13-2024 US scan of thyroid Travis Mitchell DO Work Phone: Start: 04-06-2024 Urine test visual color cmprsn meths Edelmira Downing Sholaotzer WORKSHOP MANAGER-PRODUCTION QUALITY MANAGER Work Phone: Start: 04-06-2024 Adult depression scr eening assessment [facility] Entry Level Start: 03-11-2023 Adult depression scr eening assessment [facility] Entry Level Start: 03-11-2023 Microscopic observat ion [Identifier] in Cervix by Cyto stain [facility] Entry Level Plan of Treatment Date Care Activity Detail Author Start: 02-13-2031 DTaP,Tdap and Td Vaccines (7 - Td or Tdap) DTaP,Tdap and Td Vaccines (7 - Td or Tdap) [facility] Start: 03-11-2026 Screening for malign ant neoplasm of cervix Pap Smear [facility] Start: 04-06-2025 Adult BMI Follow Up Plan Adult BMI Follow Up Plan [facility] Start: 04-06-2025 Adult BMI Screening Adult BMI Screen ing [facility] Start: 04-06-2025 Depression Screening Depression Scre ening [facility] Start: 04-06-2025 Tobacco Screening Tobacco Screening [facility] Start: 09-29-2024 Adult BMI Screening Adult BMI Screen ing [facility] Start: 09-29-2024 Tobacco Screening Tobacco Screening [facility] Start: 07-07-2024 End: 07-07-2024 Patient encounter procedure 07/07/2024 9:30 AM EST Office Visit [facility] [address] [place] [address] [facility] Start: 04-06-2024 End: 04-06-2025 Chlamydia/GC by PCR [facility] Chlamydia/GC by PCR [facility] Swab Microbiology Routine Screening examination for STD (sexually transmitted disease) Expected: 04/06/2024 (Approximate), Expires: 04/06/2025 [facility] Work Phone: Comment on above: Expected: 04/06/2024 (Approximate), Expires: 04/06/2025 Start: 04-06-2024 End: 04-06-2025 Trichomonas by PCR Trichomonas by PCR Microbiology Routine Screening examination for STD (sexually transmitted disease) Expected: 04/06/2024 (Approximate), Expires: 04/06/2025 [facility] Comment on above: Expected: 04/06/2024 (Approximate), Expires: 04/06/2025 Start: 03-11-2024 Adult BMI Follow Up Plan Adult BMI Follow Up Plan [facility] Start: 03-11-2024 Depression Screening Depression Scre ening [facility] Start: 02-29-2024 Influenza vaccination Influenza Vacc ine [facility] End: 09-29-2024 Chlamydia/GC by PCR Nixon Swab Chlamydia/GC by PCR Nixon Swab Microbiology Routine Vaginal discharge Screen for STD (sexually transmitted disease) 1 Occurrences starting 09/30/2023 until 09/29/2024 [facility] Comment on above: 1 Occurrences starti ng 09/30/2023 until 09/29/2024 Comprehensive metabo lic 2000 panel - Serum or Plasma [facility] End: 04-06-2025 Hepatitis panel, acute Hepatitis panel, acute Lab Routine Screening examination for STD (sexually transmitted disease) 1 Occurrences starting 04/06/2024 until 04/06/2025 [facility] Comment on above: 1 Occurrences starti ng 04/06/2024 until 04/06/2025 End: 04-06-2025 HIV 1&2 AB/AG Screen (P24 AG) HIV 1&2 AB/AG Screen (P24 AG) Lab Routine Screening examination for STD (sexually transmitted disease) 1 Occurrences starting 04/06/2024 until 04/06/2025 [facility] Comment on above: 1 Occurrences starti ng 04/06/2024 until 04/06/2025 Insulin [Units/volum e] in Serum or Plasma [facility] End: 04-06-2025 Syphilis Total(Unknown Syphilis Status) Syphilis Total(Unknown Syphilis Status) Lab Routine Screening examination for STD (sexually transmitted disease) 1 Occurrences starting 04/06/2024 until 04/06/2025 [facility] Comment on above: 1 Occurrences starti ng 04/06/2024 until 04/06/2025 End: 09-29-2024 Vaginitis Panel PCR Vaginitis Panel PCR Microbiology Routine Vaginal discharge 1 Occurrences starting 09/30/2023 until 09/29/2024 [facility] Work Phone: Comment on above: 1 Occurrences starti ng 09/30/2023 until 09/29/2024 [facility] Immunizations Immunization Date Immunization Notes Care Provider Kilo white 02-13-2021 tetanus toxoid, redu dunia diphtheria toxoid, and acellular pertussis vaccine, adsorbed Sherley Mitchell Other [facility] Payers Date Payer Category Payer Self-pay 2024 [employer] - Other ANTHEM [id number] 2024 Unknown [id number] 2021 Unknown [id number] 1998 Unknown [id number] 1998 Unknown [id number] 593 1998 Unknown [id number]. 1286 1998 Unknown [id number] 1286 1998 Unknown [id number]. 1286 1998 Unknown [id number] [id number]. 1286 1998 Unknown [id number] [id number]. 1286 1998 Unknown [id number]. 1286 1959 Unknown [id number] Unknown [id number] 531 Social History Date Type Detail Facility Start: 06-18-2023 End: 09-30-2023 Sex Assigned At [facility] Start: 08-07-2022 End: 08-25-2023 Tobacco smoking status NHIS Never smoked tobacco [facility] Start: 08-07-2022 Tobacco use and exposure Smokeless tobacco non-user [facility] Start: 09-30-2023 End: 04-06-2024 Alcohol intake Current drinker of alcohol (finding) [facility] Start: 06-18-2023 End: 09-30-2023 History of Social function [facility] Adolescent depressio n screening assessment 8 [facility] Start: 08-07-2022 Alcohol Comment socially [facility] Start: 2000 Sex Assigned At Not on file [facility] Start: 02-02-2015 Sex Female (finding) [facility] Start: 05-14-2024 Sex Patient sex un known (finding) [facility] Start: 2000 Sex Assigned At Female [facility] Clinical Notes 03-16-2021 to 05-13-2024 Note Date & Type Note Facility 05-13-2024 Radiology Diagnostic study note [facility] Main [address] [address] Ultrasound Report Signed Patient: Tonia Tidwell MR#: [id number] : 2000 Acct:[id number] Age/Sex: 24 / F ADM Date: 4 Loc: UL Room: Type: [facility] CLI Attending Dr: Sherley Mitchell DO Ordering Provider: Sherley Mitchell DO Date of Service: 05/13/24 US/US thyroid: E06.3 - Autoimmune thyroiditis Copies to: Sherley Mitchell DO~ Thyroid Ultrasound HISTORY: Autoimmune thyroiditis COMPARISON: None The RIGHT lobe measures 4.5 x 1.4 x 1.6cm. LEFT lobe measures 4.1 x 1.0 x 1.3 cm. Isthmus has an AP dimension of 0.2cm. No thyroid nodule identified.. No microcalcifications identified. Symmetric blood flow of the thyroid gland identified. US/US thyroid IMPRESSION: No thyroid nodules. Impression dictated by: Diego Ventura M.D.05/13/2024 4:16 PM Dictation Location: [place] [address] Tech: Magda England Transcribed By: LEIDY 05/13/241615 Dictated By: Diego Ventura DO 05/13/241614 Signed By: 05/13/241615 [facility] 05-05-2024 Evaluation note Authored May 05, 2024 10:26am The above note written by __ _Carlos Chadwick____ acting as human recorder, note dictated by Dr. Hermosillo .I performed the above HPI, ROS, and Examination. I formulated and dictated the treatment plan and was present for entire encounter. Sherley Mitchell D.O. [facility] Work Phone: [phone]) 904-927910-08-2024 History of Present illness Narrative* Edelmira Foster, WORKSHOP MANAGER-PRODUCTION QUALITY MANAGER - 04/06/2024 9:30 AM EDT Annual Well Woman Visit 04/06/2024 Janel Tidwell is a pleasant 24 y.o. female who presents for annual mysql developer exam. Periods are regularevery 28-30 days, lasting 5 days. Dysmenorrhea: none. 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 MEDICAL HX Past Medical History: Diagnosis Date Anemia In 2018 Anxiety 2017 Asthma Depression 2016 SURGICAL HX Past Surgical History: Procedure Laterality [...] Follow up in 1 year for annual mysql developer exam. Follow up as needed. Next pap due 2025 per ASCCP guidelines. Discussed taking a multivitamin. Discussed Calcium and Vitamin D for prevention of osteoporosis. Discussed recommendations for HPV vaccine between 9-45 yo. Can be received at [facility] or the [facility]. Discussed need for yearly mammogram after 40 yo. Discussed colon cancer screening recommendations to begin at 45 yo, patient to discuss with PCP. All questions answered. RTO 3 months for medication follow up. DANELLE Currie APRN-CNP Lisa M Krotzer, APRN-CNP 04/06/24 1017 documented in this encounterUniversity Hospitals Health System04-12-2024 Miscellaneous Notes* Telephone Encounter - Fadia Medrano CMA - 10/10/2023 2:14 PM EDT Called and lvm for pt to call office back regarding STD blood work results * Telephone Encounter - Marylin Galvin - 10/10/2023 2:14 PM EDT Pt returned call & advised of negative results. documented in this encounterUniversity Hospitals Health System04-12-2024 Telephone encounter Note* Telephone Encounter - Fadia Medrano CMA - 10/10/2023 2:14 PM EDT Called and lvm for pt to call office back regarding STD blood work results [facility]04-12-2024 Telephone encounter Note* Telephone Encounter - Marylin Galvin - 10/10/2023 2:14 PM EDT Pt returned call & advised of negative results. [employer] [id number] History of Present illness Narrative* Edelmira Markham, WORKSHOP MANAGER-PRODUCTION QUALITY MANAGER - 09/30/2023 9:15 AM EDT Subjective: Tonia Tidwell is a 23 y.o. [...] a slimy green/yellow color with a slight od or. She denies any abnormal discharge or odor today and states that her sympotms cleared up on Friday. Patient denies pelvic pain. Patient states she went to [facility] over the weekend and had syphilis, hepatitis and HIV labs drawn. She has not received results yet. Contraception: condoms, most of the time The following portions of the patient's history were reviewed and updated as appropriate: allergies, current medications, past family history, past medical history, past social history, past surgicalhistory, problem list, and medication reconciliation was completed including current medication andpost discharge medication. Review of Systems Constitutional: Negative. [...] Thought content normal. Judgment: Judgment normal. Assessment: Tonai was seen today for vaginal discharge. Diagnoses and all orders for this visit: Vaginal discharge - Vaginitis Panel PCR; Future - Chlamydia/GC by PCR Nixon Swab; Future Screen for STD (sexually transmitted disease) - Chlamydia/GC by PCR Nixon Swab; Future Plan: Await cultures and treat accordingly. KARL signed to obtain labs from [facility]. Consistent condom use recommended for STD prevention. All questions answered. Educational material provided through [employer] RTO for annual (due February 2024) or sooner as needed. KRYSTIAN Lopez APRN-CNP Lisa M Franco, APRN-CNP 09/30/23 0937 documented in this encounterGrace Cottage HospitalSamanage [facility] [id number] Evaluation note* Encounter Date Diagnosis Assessment Notes Treatment Notes Treatment Clinical Notes Jun, Weight gain (ICD-10 - R63.5) [facility] Other [id number] Evaluation note* Encounter Date Diagnosis Assessment Notes [...] then she could continue with this medication residential. I would need to see her again [...] and no personal patient information was compromised. [facility] Other 10-19-2023 Evaluation note* Encounter Date Diagnosis [...] Other 10:45 AM - 10:5 0 AM [facility] Other 09-13-2023 Evaluation note* Encounter Date Diagnosis [...] a bilateral ear irrigation in two weeks. Feb, Decreased hearing of left ear (ICD-10 - [...] I am unable to visualize the TMs. [facility] Other 09-17-2021 NoteHISTORY AND PHYSICAL EXAMINATION CHIEF [...] will be discharged home after the procedure.. [facility] Signed and Approved by: DR VINCE VIRK . 03/23/2021 06:09:00[facility]09-17-2021 NoteOPERATIVE NOTE OPERATION DATE: 03/16/2021 PREOPERATIVE DIAGNOSIS: Acute appendicitis. POSTOPERATIVE DIAGNOSIS: Acute appendicitis. PROCEDURE PERFORMED: Laparoscopic appendectomy. SURGEON: Vince Virk MD REFINERY OPERATOR HELPER CRUDE UNIT: PATRICA Lind ANESTHESIA: General, 0.5% Marcaine for [...] correct at the end of the case.. [facility] Signed and Approved by: DR VINCE VIRK . 03/17/2021 07:52:00[facility] Center[facility] noteNo InformationNortPottstown Hospital Audit Verify Other Evaluation note* Diagnosis Vaginal discharge- Primary Leukorrhea, not specified as infective Screen for STD (sexually transmitted disease) Screening examination for venereal disease documented in this encounter [facility]* Diagnosis Well woman exam with routine gynecological exam- Primary Routine gynecological examination Screening examination for STD (sexually transmitted disease) General counselling and advice on contraception Initial encounter for management of contraceptive patch use Standardized adult depression screening tool completed documented in this encounter [facility]* Diagnosis Encounter for initial prescription of contraceptive pills- Primary documented in this encounter [facility] System[facility] general Narrative - Reported* Type Description Date Medical History chickenpox Medical History anxiety Medical History chronic depression [facility] Audit Ver[employer] Other Instructions* Attachments The following attachments cannot be sent through Care Everywhere. * Vaginitis (Kosovan) * Control Options (Kosovan) documented in this encounterPeoples Hospital SystemInstructions* Attachments The following attachments cannot be sent through Care Everywhere. * How to Perform Breast Self-Examination ([place]) * Ethinyl Estradiol and Norelgestromin, ADULT ([place]ovan) documented in this encounterPeoples Hospital SystemInstructionsNot on file documented in this encounterPeoples Hospital SystemInstructionsNot on file documented in this encounterUniversity Hospitals Health System Summary Purpose Family History Relationship Condition Age at Onset Recorded Date/T teresa grandparent Malignant neoplasm of breast Unknown Advance Directives Advance Directive Response Recorded Date/ Time Advance Directives No February 10:28am Chief Complaint and Reason for Visit Chief Complaint Admit Date med refill Adipex/review labs May 052023 9:50am E06.3 May 13, 2024 9:15am Reason for Visit Admit Date Abnormal TSH May 05, 2024 9 :50am Hyperglycemia May 05, 2024 9 :50am Iron deficiency anemia May 05 9:50am Weight gain May 05, 2024 9 :50am Additional Source Comments INFORMATION SOURCE (unrecogn ized section and content) DATE CREATED AUTHOR 05/13/2019 [facility] DATE CREATED AUTHOR AUTHOR'S ORGANIZ ATION 01/19/2020 Mario Alberto Glass [facility] DATE CREATED AUTHOR AUTHOR'S ORGANIZ ATION 03/23/2021 [facility] DATE CREATED AUTHOR AUTHOR'S ORGANIZ ATION 04/07/2024 [facility] DATE CREATED AUTHOR AUTHOR'S ORGANIZ ATION 04/08/2024 [facility] DATE CREATED AUTHOR AUTHOR'S ORGANIZ ATION 05/18/2024 [facility] REASON FOR VISIT (unrecogniz ed section and content) Reason Comments Vaginal Discharge Reason Comments Gynecologic Exam Pt is here for annua l exam. Contraception Pt is interested in BC pills. Care Teams (unrecognized sec tion and content) Team Status: Active Member Role Status Dates Sherley Mitchell DO Primary Care Provider Active Team Status: Active Member Role Status Dates Sherley Mitchell DO Primary Care Provide r, Attending Provider Active Start: March 02, 2024 Team Status: Active Member Role Status Dates Sherley Mitchell DO Primary Care Provide r, Attending Provider Active Start: May 04, 2024 Team Status: Inactive Member Role Status Dates Sherley Mitchell DO Primary Care Provide r, Attending Provider Active Start: May 05, 2024 End: May 05, 2024 Team Status: Inactive Member Role Status Dates Sherley Mitchell DO Primary Care Provide r, Attending Provider Active Start: May 13, 2024 End: May 13, 2024 Goals (unrecognized section and content) Goals may be documented in a n alternate section FOR RECORDS PERTAINING TO PATIENTS WHO ARE [...] BE BASED ON THE PRIMARY CLINICAL RECORDS. [facility] [employer] [facility]. provides no warranty or guarantee of the accuracy or completeness of information in this document.
[2024-07-31 12:13] LABS: Basophils Percent Auto 0.6 % (0.2-2.0); Eosinophils Absolute Auto 0.5 10^3/uL (0.0-0.7); Eosinophils Percent Auto 7.8 % (0.9-7.0); Hematocrit 36.6 % (36.0-48.0); Hemoglobin 11.5 g/dL (12.0-16.0); Immature Granulocytes Abs Auto 0.01 10^3/uL (0.00-0.03); Immature Granulocytes Pct Auto 0.2 % (0.0-0.5); Lymphocytes Absolute Auto 1.9 10^3/uL (1.2-3.8); Lymphocytes Percent Auto 30.2 % (20.5-60.0); Mean Corpuscular HGB Conc 31.4 g/dL (29.9-35.2); Mean Corpuscular Hemoglobin 26.1 pg (26.7-34.0); Mean Corpuscular Volume 83.2 fL (81.0-99.0); Mean Platelet Volume 9.6 fL (9.5-13.5); Monocytes Absolute Auto 0.5 10^3/uL (0.3-0.8); Neutrophils Absolute Auto 3.5 10^3/uL (1.4-6.5); Neutrophils Percent Auto 54.2 % (43.0-75.0); Platelet Count 355 10^3/uL (150-450); Red Cell Distribution Width 14.8 % (11.0-15.0); White Blood Count 6.4 10^3/uL (4.0-11.0)
[2024-07-31 12:50] LABS: Percent Iron Saturation 6.4 %
[2024-07-31 13:02] LABS: Alanine Aminotransferase 18 U/L (14-59); Albumin Globulin Ratio 1.1; Albumin Level 3.6 g/dL (3.4-5.0); Alkaline Phosphatase 49 U/L (46-116); Anion Gap 12.1; Aspartate Amino Transferase 12 U/L (15-37); BUN Creatinine Ratio 6.9; Bilirubin Total 0.3 mg/dL (0.2-1.0); Calcium 8.8 mg/dL (8.5-10.1); Carbon Dioxide 27.9 mmol/L (21.0-32.0); Chloride 105 mmol/L (98-107); Estimated GFR (African America >60 (>=60 mL/min/1.73m^2); Estimated GFR (Non-African Ame >60 (>=60 mL/min/1.73m^2); Free T3 2.73 pg/mL (2.18-3.98); Globulin 3.3 g/dL; Glucose 90 mg/dL (74-106); Sodium 141 mmol/L (136-145); Thyroid Stimulating Hormone 3.809 uIU/mL (0.358-3.740); Total Protein 6.9 g/dL (6.4-8.2)
[2024-07-31 13:20] LABS: Estimated Average Glucose 94 mg/dL; Glycohemoglobin A1C 4.9 % (4.5-6.2)
[2024-08-01 13:08] LABS: Insulin 16.2 uIU/mL (2.6-24.9)
== END 2024-07-31 11:30 | disposition home or self-care (01) ==
PROVIDERS: PCP Family Medicine; Visit Provider Family Medicine
DX: R79.89 Other specified abnormal findings of blood chemistry (principal); D50.9 Iron deficiency anemia, unspecified; Z79.899 Other long term (current) drug therapy; D64.9 Anemia, unspecified
CPT/HCPCS: 36415; 80053; 82728; 83036; 83525; 83540; 83550; 84439; 84443; 84481; 85025

== ENCOUNTER 2024-11-12 14:59 | Outpatient (OUT) | payer BC, SELFPAY ==
[2024-11-12 15:13] LABS: Basophils Absolute Auto 0.1 10^3/uL (0.0-0.1); Basophils Percent Auto 0.7 % (0.2-2.0); Eosinophils Absolute Auto 0.5 10^3/uL (0.0-0.7); Eosinophils Percent Auto 5.4 % (0.9-7.0); Hematocrit 34.6 % (36.0-48.0); Hemoglobin 10.7 g/dL (12.0-16.0); Immature Granulocytes Abs Auto 0.02 10^3/uL (0.00-0.03); Immature Granulocytes Pct Auto 0.2 % (0.0-0.5); Lymphocytes Absolute Auto 2.3 10^3/uL (1.2-3.8); Lymphocytes Percent Auto 26.7 % (20.5-60.0); Mean Corpuscular HGB Conc 30.9 g/dL (29.9-35.2); Mean Corpuscular Hemoglobin 24.7 pg (26.7-34.0); Mean Corpuscular Volume 79.9 fL (81.0-99.0); Mean Platelet Volume 9.5 fL (9.5-13.5); Monocytes Absolute Auto 0.7 10^3/uL (0.3-0.8); Monocytes Percent Auto 8.2 % (1.7-12.0); Neutrophils Percent Auto 58.8 % (43.0-75.0); Platelet Count 377 10^3/uL (150-450); Red Blood Count 4.33 10^6/uL (4.20-5.40); White Blood Count 8.6 10^3/uL (4.0-11.0)
--- OUTSIDE RECORDS SUMMARY | 2024-11-12 15:17 | XMS_ITS | CCD ---
Author Organization [facility] Care Team Providers Care Hotel Director Name Role Phone DR SHERLEY MITCHELL Primary Care Unavailable LUIS FELIPE, DR VINCE Downing Attending Unavailable LUIS FELIPE, DR VINCE Downing Consulting Unavailable LUIS FELIPE, DR VINCE Downing Admitting Unavailable EMETERIO ROSS Consulting Unavailable PERCY TYLER Consulting Unavailable Sherley Valdez Consulting Unavailable PAULA, DR LEPE Admitting Unavailable PAULA, DR LEPE Attending Unavailable PAULA, DR LEPE Consulting Unavailable Sherley Mitchell Unavailable EDELMIRA FOSTER Referring Unavailable EDELMIRA FOSTER Referring Unavailable EDELMIRA FOSTER Referring Unavailable Sherley Mitchell DO Primary Care Provider [phone] Sherley Mitcehll DO Attending Provider [phone] Sherley Mitchell Attending Unavailable Sherley Mitchell Primary Care Unavailable Sherley Mitchell Admitting Unavailable Unavailable Primary Care Provider Unavailabl e Medications Current Medications Medication Drug Class(es) Dates Sig (Normalized) Sig (Original) [id number] 200 actuat albuterol 0.09 mg/actuat metered dose inhaler (15 sources) beta2-Adrenergic Agonist Start: 08-09-2024 Albuterol Sulfate 90 mcg/actuation HFA aerosol inhaler Active INHALATION August 09, 2024 12:00am Start: 10-28-2023 End: 02-05-2024 take 1 puff(s) [...] of breath or wheezing for 16 Active ascorbic acid 500 mg oral capsule (1 source) Vitamin C Start: 08-09-2024 take 1 capsule by mouth every other day Ascorbic Acid (Vitamin C) 500 mg capsule Active 500 MG PO .QOD 15 August 09, 2024 12:00am 168 hr ethinyl estradiol 0.36597 mg/hr / norelgestromin 0.75994 mg/hr transdermal system (2 sources) Progestin, Estrogen Start: 04-06-2024 End: 04-16-2024 apply 1 dose transdermal route every week norelgestromin-eth in.estradioL (XULANE) 150-35 mcg/24 hr Indications: Initial encounter for management of contraceptive patch use Place a new patch on the skin as directed once weekly for three weeks, followed by a patch-free week. 3 patch 3 04/06/2024 04/16/2024 Discontinued (Alternate therapy) ferrous sulfate 325 mg oral tablet (1 source) Start: 08-09-2024 take 1 tablet by mouth every other day Ferrous Sulfate 325 mg (65 mg iron) tablet Active 325 MG PO .QOD August 09, 2024 12:00am levothyroxine sodium 0.05 mg oral tablet (6 sources) l-Thyroxine Start: 08-09-2024 End: 08-09-2024 take 1 tablet by mouth once daily in the morning Levothyroxine 50 mcg tablet Active 50 MCG PO Daily August 09, 2024 5:57pm take first thing in the morning on an empty stomach, do not eat or drink anything for 30-45 minutes after taking Start: 05-06-2024 End: 08-09-2024 take 1 tablet by mouth once daily in the morning Levothyroxine (Synthroid) 25 mcg tablet Discontinued 25 MCG PO Daily May 06, 2024 10:56am August 09, 2024 5:51pm take first thing in the morning on an empty stomach, do not eat or drink for 45 min after taking phentermine hydrochloride 37.5 mg oral tablet (20 sources) Sympathomimetic Amine Anorectic Start: 08-25-2023 End: 07-28-2024 take 1 tablet by mouth once daily [...] Drug Class(es) Dates Sig (Normalized) Sig (Original) amoxicillin 875 mg / clavulanate 125 mg oral tablet (2 sources) Penicillin-class Antibacterial Start: 11-17-2023 End: 02-02-2024 take 1 tablet by mouth twice daily Amoxicillin-Pot Clavulanate 875-125 mg tablet Discontinued 1 TAB PO Twice daily 18 04November 16, 2023 11:00pm February 02, 2024 10:40am azithromycin 250 mg oral tablet (5 sources) Macrolide Antimicrobial Start: 10-13-2023 End: 10-28-2023 [...] days 2-5 for 5 days Jun, Active Norethindrone-E.Estradiol-Ir on (3 sources) Estrogen Start: 05-05-2024 End: 08-09-2024 Norethindrone-E.Estradiol-Ir on (Surekha Fe 07/19 ()) 1 mg-20 mcg (21)/75 mg (7) tablet Discontinued TAB PO Daily May 05, 2024 12:00am August 09, 2024 5:22pm Start: 05-05-2024 Norethindrone- E.Estradiol-Iron (Surekha Fe 07/19 ()) 1 mg-20 mcg [...] in the morning. 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 Anxiety disorders (8 sources) Anxiety; Translations: [Anxiety disorder, unspecified] 11-17-2023 Chronic Appendicitis and other appendiceal conditions (4 sources) Unspecified acute appendicitis; Translations: [UNSPECIFIED ACUTE APPENDICITIS] Onset: 03-16-2021 Episodic Deficiency and other anemia (6 sources) Iron deficiency anemia, unspecified; Translations: [Iron deficiency anemia, unspecified] Onset: 05-08-2020 Episodic Deficiency and other anemia (8 sources) Iron deficiency anemia; Translations: [Iron deficiency anemia, unspecified] 11-17-2023 Episodic Diabetes mellitus without complication (4 sources) Hyperglycemia; Translations: [Hyperglycemia, unspecified] 05-05-2024 Episodic Diseases of white blood cells (8 sources) Increased blood leukocyte number; Translations: [Elevated white blood cell count, unspecified] 11-17-2023 Chronic Esophageal disorders (8 sources) Acid reflux; Translations: [Gastro-esophageal reflux disease without esophagitis] 11-17-2023 Chronic Malaise and fatigue (2 sources) Fatigue; Translations: [Other fatigue] 02-02-2024 Episodic Mood disorders (8 sources) Major depressive disorder, single episode, unspecified; Translations: [Depression] 11-17-2023 Chronic Nutritional deficiencies (8 sources) Vitamin D deficiency; Translations: [Vitamin D [...] Episodic Other ear and sense organ disorders (4 sources) Impacted cerumen; Translations: [Impacted cerumen, right ear] 09-11-2023 Episodic Other gastrointestinal disorders (8 sources) Dysphagia; Translations: [Dysphagia, unspecified] 11-17-2023 Episodic [...] Chronic Other nutritional; endocrine; and metabolic disorders (4 sources) Abnormal weight gain; Translations: [Abnormal weight gain] Episodic Other nutritional; endocrine; and metabolic disorders (2 sources) Weight increased; Translations: [Abnormal weight gain] 08-25-2023 Episodic Other screening for suspected conditions (not mental disorders or infectious disease) (3 sources) Thyroid hormone tests abnormal; Translations: [Other specified abnormal findings of blood chemistry] 05-05-2024 Episodic Other upper respiratory disease (8 sources) Allergic rhinitis; Translations: [Allergic rhinitis, unspecified] 11-17-2023 Chronic Other upper respiratory infections (4 sources) Acute pharyngitis; Translations: [Acute pharyngitis, unspecified] 02-05-2024 Episodic Residual codes; unclassified (2 sources) Acquired absence of other specified parts of digestive tract; Translations: [History of laparoscopic appendectomy] 11-17-2023 Episodic Screening and history of mental health and substance abuse codes (2 sources) Encounter for screening for depression; Translations: [Standardized adult depression screening tool completed ] Onset: 04-06-2024 04-06-2024 Episodic Thyroid disorders (12 sources) Goiter; Translations: [Iodine-deficiency related diffuse (endemic) goiter] Onset: 05-13-2024 11-17-2023 Chronic Unclassified (1 source) CONTACT W/AND (SUSP) EXPOS COVID-19; Translations: [CONTACT W/AND (SUSP) EXPOS COVID-19] Onset: 03-22-2021 Unclassified (1 source) Gynecologic Exam Onset: 04-06-2024 Unclassified (1 source) Exposure to STD Onset: 06-18-2023 Past or Other Problems Problem Classification Problem Date Documented Date Episodic/Chronic Contraceptive and procreative management (6 sources) Encounter for other general counseling and advice on contraception; Translations: [Encounter for surveillance of transdermal patch hormonal contraceptive device] Onset: 04-06-2024 04-06-2024 Episodic Immunizations and screening for infectious disease (4 sources) Encounter for screening for infections with a predominantly sexual mode of transmission; Translations: [Patient encounter status] Onset: 09-30-2023 09-30-2023 Episodic Mood disorders (4 sources) Mood disorders Onset: 03-11-2023 Resolved: 04-06-2024 03-11-2023 Other female genital disorders (2 sources) Other specified noninflammatory disorders of vagina; Translations: [Other specified noninflammatory disorders of vagina] Onset: 09-30-2023 Episodic Other female genital disorders (2 sources) Vaginal discharge; Translations: [Other specified noninflammatory disorders of vagina] Onset: 09-30-2023 09-30-2023 Episodic Unclassified (1 source) Acute cough R05.1 Unclassified (4 sources) Onset: 03-11-2023 Resolved: 04-06-2024 03-11-2023 Results Test Name Value Interpretation Reference Range Facility Basophils Auto (Bld) [#/Vol] on 07-31-2024 Basophils (Bld) [#/Vol] Automated basophil count 0.0-0.1 [facility] Basophils/100 WBC Auto (Bld) on 07-31-2024 Basophils/100 WBC (Bld) Automated basophil % 0.2-2.0 [facility] Eosinophils/100 WBC Auto (Bl d)on 07-31-2024 Eosinophils/100 WBC (Bld) Automated eosinophil % High 0.9-7.0 [facility] Erythrocyte distribution wid th Auto (RBC) [Ratio]on 07-31-2024 Erythrocyte distribution width (RBC) [Ratio] Erythrocyte distribution width [Ratio] by Automated count 11.0-15.0 [facility] Estimated glomerular filtrat ion rate (GFR) non- Americanon 07-31-2024 GFR/1.73 sq M.predicted among non-blacks MDRD (S/P/Bld) [Vol rate/Area] Estimated glomerular filtration rate (GFR) non- >=60 mL/min/1.73m 2 [facility] Globulin Calc (S) [Mass/Vol] on 07-31-2024 Globulin (S) [Mass/Vol] Serum globulin measurement by calculation (mass/volume) [facility] Glucose mean value [Mass/vol ume] in Blood Estimated from glycated hemoglobinon 07-31-2024 Average glucose Estimated from glycated hemoglobin (Bld) [Mass/Vol] Glucose mean value [Mass/volume] in Blood Estimated from glycated hemoglobin [facility] Hematocrit Auto (Bld) [Volum e fraction]on 07-31-2024 Hematocrit (Bld) [Volume fraction] Hematocrit [Volume Fraction] of Blood by Automated count 36.0-48.0 [facility] Hemoglobin A1c percentageon 07-31-2024 HbA1c (Bld) [Mass fraction] Hemoglobin A1c percentage 4.5-6.2 [facility] Comment on above: ADA RECOMMENDED LIMI T 4.0 - 6.0ADA THERAPEUTIC TARGET < 7.0ACTION SUGGESTED> 7.0 Hemoglobin [Mass/volume] in Bloodon 07-31-2024 Hemoglobin (Bld) [Mass/Vol] Hemoglobin [Mass/volume] in Blood Low 12.0-16.0 [facility] Iron binding capacity [Mass/ volume] in Serum or Plasmaon 07-31-2024 Iron binding capacity [Mass/Vol] Iron binding capacity [Mass/volume] in Serum or Plasma 250.0-450.0 [facility] Iron saturation [Mass Fracti on] in Serum or Plasmaon 07-31-2024 Iron saturation [Mass fraction] Iron saturation [Mass Fraction] in Serum or Plasma [facility] - Chemistry and C hemistry - challengeon 07-31-2024 Albumin [Mass/Vol] 3.6 g/dL 3.4-5.0 [facility] ALP [Catalytic activity/Vol] 49 U/L 46-116 [facility] ALT [Catalytic activity/Vol] 18 U/L 14-59 [facility] AST [Catalytic activity/Vol] 12 U/L Low 15-37 [facility] Bilirubin [Mass/Vol] 0.3 mg/dL 0.2-1.0 [facility] Calcium [Mass/Vol] 8.8 mg/dL 8.5-10.1 [facility] Chloride [Moles/Vol] 105 mmol/L 98-107 [facility] CO2 [Moles/Vol] 27.9 mmol/L 21.0-32.0 [facility] Creatinine [Mass/Vol] 0.87 mg/dL 0.55-1.02 [facility] Ferritin [Mass/Vol] 9.0 ng/mL 8.0-252.0 [facility] Free T4 [Mass/Vol] 1.00 ng/dL 0.76-1.46 [facility] GFR/1.73 sq M.predicted MDRD (S/P/Bld) [Vol rate/Area] mL/min/{1.73_m2} >=60 mL/min/1.73m 2 [facility] Glucose [Mass/Vol] 90 mg/dL 74-106 [facility] Iron [Mass/Vol] 25.0 ug/dL Low 50.0-170.0 [facility] Potassium [Moles/Vol] 4.0 mmol/L 3.5-5.1 [facility] Protein [Mass/Vol] 6.9 g/dL 6.4-8.2 [facility] Sodium [Moles/Vol] 141 mmol/L 136-145 [facility] TSH Qn 3.809 m[IU]/L High 0.358-3.740 [facility] Urea nitrogen [Mass/Vol] 6.0 mg/dL Low 7.0-18.0 [facility] Urea nitrogen/Creatinine [Mass ratio] 6.9 mg/mg [facility] - Hematology and Cell countson 07-31-2024 Immature granulocytes/100 WBC (Bld) 0.2 % 0.0-0.5 [facility] Leukocytes [#/volume] correc anita for nucleated erythrocytes in Blood by Automated counon 07-31-2024 WBC corrected for nucl RBC Auto (Bld) [#/Vol] Leukocytes [#/volume] corrected for nucleated erythrocytes in Blood by Automated coun 4.0-11.0 [facility] Lymphocytes Auto (Bld) [#/Vo l]on 07-31-2024 Lymphocytes (Bld) [#/Vol] Lymphocytes [#/volume] in Blood by Automated count 1.2-3.8 [facility] Lymphocytes/100 WBC Auto (Bl d)on 07-31-2024 Lymphocytes/100 WBC (Bld) Lymphocytes/100 leukocytes in Blood by Automated count 20.5-60.0 [facility] MCH Auto (RBC) [Entitic mass ]on 07-31-2024 MCH (RBC) [Entitic mass] MCH [Entitic mass] by Automated count Low 26.7-34.0 [facility] MCHC Auto (RBC) [Mass/Vol]on 07-31-2024 MCHC (RBC) [Mass/Vol] MCHC [Mass/volume] by Automated count 29.9-35.2 [facility] MCV Auto (RBC) [Entitic vol] on 07-31-2024 MCV (RBC) [Entitic vol] MCV [Entitic volume] by Automated count 81.0-99.0 [facility] Monocytes Auto (Bld) [#/Vol] on 07-31-2024 Monocytes (Bld) [#/Vol] Automated blood monocyte count 0.3-0.8 [facility] Monocytes/100 WBC Auto (Bld) on 07-31-2024 Monocytes/100 WBC (Bld) Automated monocyte % 1.7-12.0 [facility] Neutrophils Auto (Bld) [#/Vo l]on 07-31-2024 Neutrophils (Bld) [#/Vol] Neutrophils [#/volume] in Blood by Automated count 1.4-6.5 [facility] Neutrophils/100 WBC Auto (Bl d)on 07-31-2024 Neutrophils/100 WBC (Bld) Automated neutrophil % 43.0-75.0 [facility] No Panel Informationon 07-31 Eosinophils # (Auto) 0.5 10 3/uL 0.0-0.7 [facility] Free Triiodothyronine 2.73 pg/mL 2.18-3.98 [facility] Immature Granulocyte # (Auto) 0.01 10 3/uL 0.00-0.03 [facility] Platelet mean volume Auto (B ld) [Entitic vol]on 07-31-2024 Platelet mean volume (Bld) [Entitic vol] Platelet mean volume [Entitic volume] in Blood by Automated count 9.5-13.5 [facility] Platelets Auto (Bld) [#/Vol] on 07-31-2024 Platelets (Bld) [#/Vol] Platelets [#/volume] in Blood by Automated count 150-450 [facility] RBC Auto (Bld) [#/Vol]on RBC (Bld) [#/Vol] Erythrocytes [#/volu me] in Blood by Automated count 4.20-5.40 [facility] Serum or plasma albumin/glob ulin mass ratioon 07-31-2024 Albumin/Globulin [Mass ratio] Serum or plasma albumin/globulin mass ratio [facility] Serum or plasma anion gap de terminationon 07-31-2024 Anion gap [Moles/Vol] Serum or plasma anion gap determination [facility] Serum or plasma insulin brooke urement (units/volume)on 07-31-2024 Insulin Qn Serum or plasma insu gaetano measurement (units/volume) 2.6-24.9 [facility] Comment on above: Performed at: [employer] [address] [id number] Director: Jose Eduardo Sweet PhD, Phone: [phone] US thyroidon 05-13-2024 thyroid [facility] [place] [address] Ultrasound Report Signed Patient: Tonia Tidwell MR#: [id number] : 2000 Acct:[id number] Age/Sex: 24 / F ADM Date: 05/13/24 Loc: Room: Type: [facility] Attending Dr: Sherley Mitchell DO Ordering [...] Diego Ventura M.D.05/13/2024 4:16 PM Dictation Location: [place] [address] Tech: Magda Tomás Transcribed By: [facility] 05/13/241615 Dictated By: Diego Ventura DO 05/13/241614 Signed By: 11/14/24 1616 Normal [facility] Basophils Auto (Bld) [#/Vol] on 05-04-2024 Basophils (Bld) [#/Vol] Automated basophil count 0.0-0.1 [facility] Basophils/100 WBC Auto (Bld) on 05-04-2024 Basophils/100 WBC (Bld) Automated basophil % 0.2-2.0 [facility] Eosinophils/100 WBC Auto (Bl d)on 05-04-2024 Eosinophils/100 WBC (Bld) Automated eosinophil % High 0.9-7.0 [facility] Erythrocyte distribution wid th Auto (RBC) [Ratio]on 05-04-2024 Erythrocyte distribution width (RBC) [Ratio] Erythrocyte distribution width [Ratio] by Automated count 11.0-15.0 [facility] Hematocrit Auto (Bld) [Volum e fraction]on 05-04-2024 Hematocrit (Bld) [Volume fraction] Hematocrit [Volume Fraction] of Blood by Automated count 36.0-48.0 [facility] Hemoglobin [Mass/volume] in Bloodon 05-04-2024 Hemoglobin (Bld) [Mass/Vol] Hemoglobin [Mass/volume] in Blood 12.0-16.0 [facility] Iron binding capacity [Mass/ volume] in Serum or Plasmaon 05-04-2024 Iron binding capacity [Mass/Vol] Iron binding capacity [Mass/volume] in Serum or Plasma High 250.0-450.0 [facility] Iron saturation [Mass Fracti on] in Serum or Plasmaon 05-04-2024 Iron saturation [Mass fraction] Iron saturation [Mass Fraction] in Serum or Plasma [facility] - Chemistry and C hemistry - challengeon 05-04-2024 Free T4 [Mass/Vol] 0.97 ng/dL 0.76-1.46 [facility] Iron [Mass/Vol] 53.0 ug/dL 50.0-170.0 [facility] TSH Qn 7.144 m[IU]/L High 0.358-3.740 [facility] - Hematology and Cell countson 05-04-2024 Immature granulocytes/100 WBC (Bld) 0.1 % 0.0-0.5 [facility] Leukocytes [#/volume] correc anita for nucleated erythrocytes in Blood by Automated counon 05-04-2024 WBC corrected for nucl RBC Auto (Bld) [#/Vol] Leukocytes [#/volume] corrected for nucleated erythrocytes in Blood by Automated coun 4.0-11.0 [facility] Lymphocytes Auto (Bld) [#/Vo l]on 05-04-2024 Lymphocytes (Bld) [#/Vol] Lymphocytes [#/volume] in Blood by Automated count 1.2-3.8 [facility] Lymphocytes/100 WBC Auto (Bl d)on 05-04-2024 Lymphocytes/100 WBC (Bld) Lymphocytes/100 leukocytes in Blood by Automated count 20.5-60.0 [facility] MCH Auto (RBC) [Entitic mass ]on 05-04-2024 MCH (RBC) [Entitic mass] MCH [Entitic mass] by Automated count Low 26.7-34.0 [facility] MCHC Auto (RBC) [Mass/Vol]on 05-04-2024 MCHC (RBC) [Mass/Vol] MCHC [Mass/volume] by Automated count 29.9-35.2 [facility] MCV Auto (RBC) [Entitic vol] on 05-04-2024 MCV (RBC) [Entitic vol] MCV [Entitic volume] by Automated count Low 81.0-99.0 [facility] Monocytes Auto (Bld) [#/Vol] on 05-04-2024 Monocytes (Bld) [#/Vol] Automated blood monocyte count 0.3-0.8 [facility] Monocytes/100 WBC Auto (Bld) on 05-04-2024 Monocytes/100 WBC (Bld) Automated monocyte % 1.7-12.0 [facility] Neutrophils Auto (Bld) [#/Vo l]on 05-04-2024 Neutrophils (Bld) [#/Vol] Neutrophils [#/volume] in Blood by Automated count 1.4-6.5 [facility] Neutrophils/100 WBC Auto (Bl d)on 05-04-2024 Neutrophils/100 WBC (Bld) Automated neutrophil % 43.0-75.0 [facility] No Panel Informationon 05-04 Eosinophils # (Auto) 0.7 10 3/uL 0.0-0.7 [facility] Free Triiodothyronine 2.93 pg/mL 2.18-3.98 [facility] Immature Granulocyte # (Auto) 0.01 10 3/uL 0.00-0.03 [facility] Platelet mean volume Auto (B ld) [Entitic vol]on 05-04-2024 Platelet mean volume (Bld) [Entitic vol] Platelet mean volume [Entitic volume] in Blood by Automated count 9.5-13.5 [facility] Platelets Auto (Bld) [#/Vol] on 05-04-2024 Platelets (Bld) [#/Vol] Platelets [#/volume] in Blood by Automated count 150-450 [facility] RBC Auto (Bld) [#/Vol]on RBC (Bld) [#/Vol] Erythrocytes [#/volu me] in Blood by Automated count 4.20-5.40 [facility] Serum or plasma thyroglobuli n antibody assay (units/volume)on 05-04-2024 Thyroglobulin Ab Qn Serum or plasma thyroglobulin antibody assay (units/volume) Abnormal 0.0-0.9 [facility] Comment on above: Thyroglobulin Antibo dy measured by Neil VoluniaMethodologyIt should be noted that the presence of thyroglobulinantibodies may not be pathogenic nor diagnostic, especiallyat very low levels. The assay director [facility] has found thatfour percent of individuals without evidence of thyroiddisease or autoimmunity will have positive TgAb levels upto 4 IU/mL.Performed at: [employer] [id number] Director: Jose Eduardo Sweet PhD, Phone: [phone] Serum or plasma thyroperoxid ase antibody assay (units/volume)on 05-04-2024 TPO Ab Qn Serum or plasma thyroperoxidase antibody assay (units/volume) Abnormal 0-34 [facility] CHLAMYDIA/GC BY PCRon 2023 CHLAMYDIA/GC BY [...] are dependent on adequate specimen collection. Normal [facility] Comment on above: Performed By: #### C GS #### [facility] ([id number]) [address], [address] [place] [address] POCT , urineon 10-0 Beta HCG ( test) Ql (U) Negative [facility] Administrator Check Completed and Passed Yes [facility] Interpretation and review of laboratory results Normal [facility] TRICHOMONAS PCRon 04-06-2024 TRICHOMONAS PCR SPECIMEN SOURCE CERVICAL TRICHOMONAS PCR Not detected (qualifier value) Trichomonas vaginalis not detected NOTE Assay methodology is nucleic acid amplification by real-time PCR for detection of Trichomonas vaginalis DNA performed on [employer] Instrument System. Normal [facility] Comment on above: Performed By: #### T RKPCR #### [facility] ([id number]) [address] [place] [address] Basophils Auto (Bld) [#/Vol] on 03-02-2024 Basophils (Bld) [#/Vol] Automated basophil count 0.0-0.1 [facility] Basophils/100 WBC Auto (Bld) on 03-02-2024 Basophils/100 WBC (Bld) Automated basophil % 0.2-2.0 [facility] Eosinophils/100 WBC Auto (Bl d)on 03-02-2024 Eosinophils/100 WBC (Bld) Automated eosinophil % High 0.9-7.0 [facility] Erythrocyte distribution wid th Auto (RBC) [Ratio]on 03-02-2024 Erythrocyte distribution width (RBC) [Ratio] Erythrocyte distribution width [Ratio] by Automated count 11.0-15.0 [facility] Estimated glomerular filtrat ion rate (GFR) non- Americanon 03-02-2024 GFR/1.73 sq M.predicted among non-blacks MDRD (S/P/Bld) [Vol rate/Area] Estimated glomerular filtration rate (GFR) non- >=60 [facility] Globulin Calc (S) [Mass/Vol] on 03-02-2024 Globulin (S) [Mass/Vol] Serum globulin measurement by calculation (mass/volume) [facility] Hematocrit Auto (Bld) [Volum e fraction]on 03-02-2024 Hematocrit (Bld) [Volume fraction] Hematocrit [Volume Fraction] of Blood by Automated count 36.0-48.0 [facility] Hemoglobin [Mass/volume] in Bloodon 03-02-2024 Hemoglobin (Bld) [Mass/Vol] Hemoglobin [Mass/volume] in Blood Low 12.0-16.0 [facility] Iron binding capacity [Mass/ volume] in Serum or Plasmaon 03-02-2024 Iron binding capacity [Mass/Vol] Iron binding capacity [Mass/volume] in Serum or Plasma 250.0-450.0 [facility] Iron saturation [Mass Fracti on] in Serum or Plasmaon 03-02-2024 Iron saturation [Mass fraction] Iron saturation [Mass Fraction] in Serum or Plasma [facility] - Chemistry and C hemistry - challengeon 03-02-2024 Albumin [Mass/Vol] 3.8 g/dL 3.4-5.0 [facility] ALP [Catalytic activity/Vol] 48 U/L 46-116 [facility] ALT [Catalytic activity/Vol] 35 U/L 14-59 [facility] AST [Catalytic activity/Vol] 21 U/L 15-37 [facility] Bilirubin [Mass/Vol] 0.3 mg/dL 0.2-1.0 [facility] Calcium [Mass/Vol] 8.8 mg/dL 8.5-10.1 [facility] Chloride [Moles/Vol] 103 mmol/L 98-107 [facility] CO2 [Moles/Vol] 26.4 mmol/L 21.0-32.0 [facility] Creatinine [Mass/Vol] 0.85 mg/dL 0.55-1.02 [facility] Ferritin [Mass/Vol] 7.0 ng/mL Low 8.0-252.0 [facility] GFR/1.73 sq M.predicted MDRD (S/P/Bld) [Vol rate/Area] mL/min/{1.73_m2} >=60 [facility] Glucose [Mass/Vol] 102 mg/dL 74-106 [facility] Iron [Mass/Vol] 26.0 ug/dL Low 50.0-170.0 [facility] Potassium [Moles/Vol] 4.1 mmol/L 3.5-5.1 [facility] Protein [Mass/Vol] 7.0 g/dL 6.4-8.2 [facility] Sodium [Moles/Vol] 141 mmol/L 136-145 [facility] TSH Qn 5.893 m[IU]/L High 0.358-3.740 [facility] [facility] Urea nitrogen [Mass/Vol] 7.0 mg/dL 7.0-18.0 [facility] Urea nitrogen/Creatinine [Mass ratio] 8.2 mg/mg [facility] - Hematology and Cell countson 03-02-2024 Immature granulocytes/100 WBC (Bld) 0.3 % 0.0-0.5 [facility] Leukocytes [#/volume] correc anita for nucleated erythrocytes in Blood by Automated counon 03-02-2024 WBC corrected for nucl RBC Auto (Bld) [#/Vol] Leukocytes [#/volume] corrected for nucleated erythrocytes in Blood by Automated coun 4.0-11.0 [facility] Lymphocytes Auto (Bld) [#/Vo l]on 03-02-2024 Lymphocytes (Bld) [#/Vol] Lymphocytes [#/volume] in Blood by Automated count 1.2-3.8 [facility] Lymphocytes/100 WBC Auto (Bl d)on 03-02-2024 Lymphocytes/100 WBC (Bld) Lymphocytes/100 leukocytes in Blood by Automated count Low 20.5-60.0 [facility] MCH Auto (RBC) [Entitic mass ]on 03-02-2024 MCH (RBC) [Entitic mass] MCH [Entitic mass] by Automated count Low 26.7-34.0 [facility] MCHC Auto (RBC) [Mass/Vol]on 03-02-2024 MCHC (RBC) [Mass/Vol] MCHC [Mass/volume] by Automated count 29.9-35.2 [facility] MCV Auto (RBC) [Entitic vol] on 03-02-2024 MCV (RBC) [Entitic vol] MCV [Entitic volume] by Automated count 81.0-99.0 [facility] Monocytes Auto (Bld) [#/Vol] on 03-02-2024 Monocytes (Bld) [#/Vol] Automated blood monocyte count 0.3-0.8 [facility] Monocytes/100 WBC Auto (Bld) on 03-02-2024 Monocytes/100 WBC (Bld) Automated monocyte % 1.7-12.0 [facility] Neutrophils Auto (Bld) [#/Vo l]on 03-02-2024 Neutrophils (Bld) [#/Vol] Neutrophils [#/volume] in Blood by Automated count 1.4-6.5 [facility] Neutrophils/100 WBC Auto (Bl d)on 03-02-2024 Neutrophils/100 WBC (Bld) Automated neutrophil % 43.0-75.0 [facility] No Panel Informationon 03-02 Eosinophils # (Auto) 0.5 10 3/uL 0.0-0.7 [facility] Immature Granulocyte # (Auto) 0.02 10 3/uL 0.00-0.03 [facility] Platelet mean volume Auto (B ld) [Entitic vol]on 03-02-2024 Platelet mean volume (Bld) [Entitic vol] Platelet mean volume [Entitic volume] in Blood by Automated count 9.5-13.5 [facility] Platelets Auto (Bld) [#/Vol] on 03-02-2024 Platelets (Bld) [#/Vol] Platelets [#/volume] in Blood by Automated count 150-450 [facility] RBC Auto (Bld) [#/Vol]on RBC (Bld) [#/Vol] Erythrocytes [#/volu me] in Blood by Automated count 4.20-5.40 [facility] Serum or plasma albumin/glob ulin mass ratioon 03-02-2024 Albumin/Globulin [Mass ratio] Serum or plasma albumin/globulin mass ratio [facility] Serum or plasma anion gap de terminationon 03-02-2024 Anion gap [Moles/Vol] Serum or plasma anion gap determination [facility] CHLAMYDIA/GC BY PCRon 2023 CHLAMYDIA/GC BY [...] are dependent on adequate specimen collection. Normal [facility] Comment on above: Performed By: #### C GS #### [facility] ([id number]) [address] [place] [address], [address] [place] [address] VAGINITIS PANEL PCRon 2023 VAGINITIS PANEL PCR [...] KRUSEI DNA Not detected (qualifier value) No Kalain krusei detected KALANI GLABRATA DNA Not detected (qualifier value) No Kalani glabrata detected TRICHOMONAS VAG DNA Not detected (qualifier value) No Trichomonas vaginalis detected NOTE BD MAX Vaginal Panel has not been evaluated for patients under 18 years old. Results for these patients should be reviewed and assessed in accordance with clinical presentation to determine patient diagnosis. [facility] Comment on above: Performed By: #### V PPCR #### [facility] ([id number]) [address] [place] [address], [address] [place] [address] CHLAMYDIA/GC BY PCRon 2022 CHLAMYDIA/GC BY PCR [...] results are dependent on adequate specimen collection. [facility] Comment on above: Performed By: #### C GS #### [facility] ([id number]) [address], [address] [place] [address] VAGINITIS PANEL PCRon 2022 VAGINITIS PANEL PCR [...] with clinical presentation to determine patient diagnosis. [facility] Comment on above: Performed By: #### V PPCR #### [facility] ([id number]) [address], [address] [place] [address] ASYMPTOMATIC COVID-19 ANTIGE Non 03-16-2021 EUA Statement SEE BELOW [facility] Comment on above: Result Comment: [...] sooner. Performed By: #### C VDAGA #### [facility] [address] [address] [address] Shasta Castro SARS-CoV-2 (COVID-19) RNA DAMIEN+probe Ql (Unsp spec) Negative Normal NEGATIVE [facility] Comment on above: Result Comment: Nega tive results are presumptive. They do not preclude infection and should not be used as the sole basis for treatment decisions. Additional confirmatory testing by a molecular method should be considered. Performed By: #### C VDAGA #### [facility] [address] [address] [address] Shasta Castro CBC AUTO DIFFon 03-16-2021 BASO # 0.1 103/ul Normal 0.0-0.1 [facility] Comment on above: Performed By: #### C BC ####[facility] [address] [address]Dr. Shasta Castro Basophils/100 WBC (Bld) 0.7 % Normal 0.2-2.0 [facility] Comment on above: Performed By: #### C BC ####[facility] [address] [address]DrNaren Castro EO # 0.5 103/ul Normal 0.0-0.7 [facility] Comment on above: Performed By: #### C BC ####[facility] [address] [id number] Castro Eosinophils/100 WBC (Bld) 6.2 % Normal 0.9-7.0 [facility] Comment on above: Performed By: #### C BC ####[facility] [address] [address]DrNaren Castro Erythrocyte distribution width (RBC) [Ratio] 13.8 % Normal 11.0-15.0 [facility] Comment on above: Performed By: #### C BC ####[facility] [address] [address]Dr. Shasta Castro Hematocrit (Bld) [Volume fraction] 37.8 % Normal 36.0-48.0 [facility] Comment on above: Performed By: #### C BC ####[facility] [address] [address]Dr. Shasta Castro Hemoglobin (Bld) [Mass/Vol] 11.8 g/dL Critically low 12.0-16.0 [facility] Comment on above: Performed By: #### C BC ####[facility] [address] [place], [place] [address]Dr. Annelsony Castro IG # 0.03 10e3/ul Normal 0.00-0.03 [facility] Comment on above: Performed By: #### C BC ####[facility] [address] [place], [place] [address]Dr. Shasta Castro IG % 0.4 % Normal 0.0-0.5 [facility] Comment on above: Performed By: #### C BC ####[facility] [address] [place], [place] [address]DrNaren Annelsony Castro LYMPH # 1.8 103/ul Normal 1.2-3.8 [facility] Comment on above: Performed By: #### C BC ####[facility] [address] [place], [place] [address]DrNaren Castro Lymphocytes/100 WBC (Bld) 21.2 % Normal 20.5-60.0 [facility] Comment on above: Performed By: #### C BC ####[facility] [address] [place], [place] [address]DrNaren Annelsony Castro MANUAL DIFF REQ NO Normal [facility] Comment on above: Performed By: #### C BC ####[facility] [address] [place], [place] [address]DrNaren Castro MCH (RBC) [Entitic mass] 24.7 pg Critically low 26.7-34.0 [facility] Comment on above: Performed By: #### C BC ####[facility] [address] [id number]. Shasta Matthew MCHC (RBC) [Mass/Vol] 31.2 g/dL Normal 29.9-35.2 [facility] Comment on above: Performed By: #### C BC ####[facility] [address] [id number]. Shasta Castro MCV (RBC) [Entitic vol] 79.2 fL Critically low 81.0-99.0 [facility] Comment on above: Performed By: #### C BC ####[facility] [address] [place], [place] [address]Dr. Shasta Castro MONO # 0.6 103/ul Normal 0.3-0.8 [facility] Comment on above: Performed By: #### C BC ####[facility] [address] [place], [place] [address]Dr. Shasta Castro Monocytes/100 WBC (Bld) 7.5 % Normal 1.7-12.0 [facility] Comment on above: Performed By: #### C BC ####[facility] [address] [place], [place] [address]Dr. Shasta Castro NEUT # 5.4 103/ul Normal 1.4-6.5 [facility] Comment on above: Performed By: #### C BC ####[facility] [address] [place], [place] [address]Dr. Shasta Castro Neutrophils/100 WBC (Bld) 64.0 % Normal 43.0-75.0 [facility] Comment on above: Performed By: #### C BC ####[facility] [address] [place], [place] [address]Dr. Shasta Castro Platelet mean volume (Bld) [Entitic vol] 9.6 fL Normal 9.5-13.5 [facility] Comment on above: Performed By: #### C BC ####[facility] [address] [place], [place] [address]Dr. Shasta Castro PLT 354 103/ul Normal 150-450 [facility] Comment on above: Performed By: #### C BC ####[facility] [address] [place], [place] [address]Lt. Shasta Castro RBC 4.77 106/ul Normal 4.20-5.40 [facility] Comment on above: Performed By: #### C BC ####[facility] [address] [place], [place] [address]Bk. Shasta Castro WBC 8.4 103/ul Normal 4.0-11.0 [facility] Comment on above: Performed By: #### C BC ####[facility] [address] [place], [place] [address]X[address]. [address] ABD/PELV W CONon 03-16-20 [...] SHERLEY VALDEZ Date: 2021-03-16 12:06 Normal [facility]28 SARS-CoV-2 (COVID-19) RNA DAMIEN+probe Ql (Unsp spec) Not detected Normal NOT DETECTED [facility] Comment on above: Result Comment: This test is not yet approved or cleared by the [place] FDA. When there are no FDA-approved or cleared tests available, and other criteria are met, FDA can make tests available under an emergency access mechanism called an Emergency Use Authorization (EUA). The EUA for this test is supported by the Trim Attacher of Health and Human Service's (HHS's) declaration [...] with SARS-CoV-2. Performed By: #### C VDTB ####[facility] [address] [place], [place] [address]DvDr. Shasta Castro ER URINE PROFILEon 1 Bilirubin Ql (U) Negative Normal NEGATIVE [facility] Comment on above: Performed By: #### E LANCE PREGU #### [facility] [address] [place], [place] [address] Dr. Shasta Castro Clarity (U) CLEAR Normal CLEAR [facility] Comment on above: Performed By: #### E GALOR, PREGU #### [facility] [address] [place] [address] Dr. Shasta Castro Color (U) LT. YELLOW Normal YELLOW [facility] Comment on above: Performed By: #### E RUR, PREGU #### [facility] [address] [place] [address] Dr. Shasta SMITH A micrscopic examina tion will be performed if indicated. Normal [facility] Comment on above: Performed By: #### E RUR, PREGU #### [facility] [address] [place] [address] Dr. Shasta Castro Glucose Ql (U) Negative Normal NEGATIVE [facility] Comment on above: Performed By: #### E RUR, PREGU #### [facility] [address] [place] [address] Dr. Shasta Castro Hemoglobin Ql (U) Negative Normal NEGATIVE [facility] Comment on above: Performed By: #### E RUR, PREGU #### [facility] [address] [place] [address] Dr. Shasta Castro Ketones Ql (U) Negative Normal NEGATIVE [facility] Comment on above: Performed By: #### E RUR, PREGU #### [facility] [address] [place] [address] Dr. Shasta Castro LEUKOCYTES TRACE Abnormal NEGATIVE [facility] Comment on above: Performed By: #### E RUR, PREGU #### [facility] [address] [place] [address] Dr. Shasta Castro Nitrite Ql (U) Negative Normal NEGATIVE [facility] Comment on above: Performed By: #### E RUR, PREGU #### [facility] [address] [place] [address] Dr. Shasta Castro pH (U) 6.0 [pH] Normal 5-9 [facility] Comment on above: Performed By: #### E RUR, PREGU #### [facility] [address] [place] [address] Dr. Shasta Castro SPEC GRAVITY 1.025 Normal 1.005-<=1.02 5 [facility] Comment on above: Performed By: #### E RUR, PREGU #### [facility] [address] [place] [address] Dr. Shasta Castro UA PROTEIN Negative Normal NEGATIVE/ TRACE [facility] Comment on above: Performed By: #### E RUR, PREGU #### [facility] [address] [place] [address] Dr. Shasta Castro UR MICRO IND NOT INDICATED Normal [facility] Comment on above: Performed By: #### E RUR, PREGU #### [facility] [address] [place] [address] Dr. Shasta Castro Urobilinogen Qn (U) 0.2 {Ester'U}/dL Normal 0.2 - 1. 0 [facility] Comment on above: Performed By: #### E RUR, PREGU #### [facility] [address] [place] [address] Dr. Shasta Castro URon 03-16-2021 , QUAL Negative Normal NEGATIVE [facility] Comment on above: Performed By: #### E RUR, PREGU #### [facility] [address] [place] [address] Dr. Shasta Castro PROF CHEM 8 (BAS METB)on Anion gap [Moles/Vol] 13.9 mmol/L Normal [facility] Comment on above: Performed By: #### B MP #### [facility] [address] [place] [address] Dr. Shasta Castro Calcium [Mass/Vol] 9.1 mg/dL Normal 8.4-10.2 [facility] Comment on above: Performed By: #### B MP #### [facility] [address] [place] [address] Dr. Shasta Castro Chloride [Moles/Vol] 103 mmol/L Normal 98-107 [facility] Comment on above: Performed By: #### B MP #### [facility] [address] [place] [address] Dr. Shasta Castro CO2 [Moles/Vol] 24.8 mmol/L Normal 22.0-30.0 [facility] Comment on above: Performed By: #### B MP #### [facility] [address] [address] [address] Shasta Castro Creatinine [Mass/Vol] 0.88 mg/dL Normal 0.52-1.04 [facility] Comment on above: Performed By: #### B MP #### [facility] [address] [address] [address] Shasta Castro EGFR-AF SWISS >60 Normal >=60 [facility] Comment on above: Performed By: #### B MP #### [facility] [address] [address] [address] Shasta Castro EGFR-NON AF SWISS >60 Normal >=60 [facility] Comment on above: Performed By: #### B MP #### [facility] [address] [place] [address] Dr. Shasta Castro Glucose [Mass/Vol] 88 mg/dL Normal 74-106 [facility] Comment on above: Performed By: #### B MP #### [facility] [address] [place] [address] Dr. Shasta Castro Potassium [Moles/Vol] 3.7 mmol/L Normal 3.4-5.0 [facility] Comment on above: Performed By: #### B MP #### [facility] [address] [place] [address] Dr. Shasta Castro Sodium [Moles/Vol] 138 mmol/L Normal 137-145 [facility] Comment on above: Performed By: #### B MP #### [facility] [address] [place] [address] Dr. Shasta Castro Urea nitrogen [Mass/Vol] 12.0 mg/dL Normal 7.0-17.0 [facility] Comment on above: Performed By: #### B MP #### [facility] [address] [place] [address] Dr. Shasta Castro Urea nitrogen/Creatinine [Mass ratio] 13.6 mg/mg Normal [facility] Comment on above: Performed By: #### B MP #### [facility] [address] [place] [address] Dr. Shasta Castro CBC AUTO DIFFon 05-08-2020 BASO # 0.1 103/ul Normal 0.0-0.1 [facility] Comment on above: Performed By: #### C BC #### [facility] [address] [place], [place] [id number] Maged Nelda Basophils/100 WBC (Bld) 0.7 % Normal 0.2-2.0 [facility] Comment on above: Performed By: #### C BC #### [facility] [address] [place] [address] Maged Nelda EO # 0.6 103/ul Normal 0.0-0.7 [facility] Comment on above: Performed By: #### C BC #### [facility] [address] [place] [address] Maged Nelda Eosinophils/100 WBC (Bld) 6.4 % Normal 0.9-7.0 [facility] Comment on above: Performed By: #### C BC #### [facility] [address] [place] [address] Maged Nelda Erythrocyte distribution width (RBC) [Ratio] 13.3 % Normal 11.0-15.0 [facility] Comment on above: Performed By: #### C BC #### [facility] [address] [place] [address] Maged Nelda Hematocrit (Bld) [Volume fraction] 39.5 % Normal 36.0-48.0 [facility] Comment on above: Performed By: #### C BC #### [facility] [address] [place] [address] Maged Nelda Hemoglobin (Bld) [Mass/Vol] 12.3 g/dL Normal 12.0-16.0 [facility] Comment on above: Performed By: #### C BC #### [facility] [address] [place], [place] [id number] Maged Nelda IG # 0.03 10e3/ul Normal 0.00-0.03 [facility] Comment on above: Performed By: #### C BC #### [facility] [address] [place], [place] [id number] Maged Nelda IG % 0.3 % Normal 0.0-0.5 [facility] Comment on above: Performed By: #### C BC #### [facility] [address] [place] [address] Magedwalter Lutz LYMPH # 2.7 103/ul Normal 1.2-3.8 [facility] Comment on above: Performed By: #### C BC #### [facility] [address] [place] [address] Magedwalter Lutz Lymphocytes/100 WBC (Bld) 27.0 % Normal 20.5-60.0 [facility] Comment on above: Performed By: #### C BC #### [facility] [address] [place] [address] Maged Lutz MANUAL DIFF REQ NO Normal [facility] Comment on above: Performed By: #### C BC #### [facility] [address] [place] [address] Magedwalter Campoen MCH (RBC) [Entitic mass] 25.5 pg Critically low 26.7-34.0 [facility] Comment on above: Performed By: #### C BC #### [facility] [address] [place] [address] Magedwalter Lutz MCHC (RBC) [Mass/Vol] 31.1 g/dL Normal 29.9-35.2 [facility] Comment on above: Performed By: #### C BC #### [facility] [address] [place] [address] Magedwalter Lutz MCV (RBC) [Entitic vol] 81.8 fL Normal 81.0-99.0 [facility] Comment on above: Performed By: #### C BC #### [facility] [address] [place] [address] Maged Nelda MONO # 0.5 103/ul Normal 0.3-0.8 [facility] Comment on above: Performed By: #### C BC #### [facility] [address] [place] [address] Maged Nelda Monocytes/100 WBC (Bld) 5.4 % Normal 1.7-12.0 [facility] Comment on above: Performed By: #### C BC #### [facility] [address] [place], [place] [id number] Maged Lutz NEUT # 6.0 103/ul Normal 1.4-6.5 [facility] Comment on above: Performed By: #### C BC #### [facility] [address] [place], [place] [address] Maged Lutz Neutrophils/100 WBC (Bld) 60.2 % Normal 43.0-75.0 [facility] Comment on above: Performed By: #### C BC #### [facility] [address] [place], [place] [id number] Maged Lutz Platelet mean volume (Bld) [Entitic vol] 9.2 fL Critically low 9.5-13.5 [facility] Comment on above: Performed By: #### C BC #### [facility] [address] [place] [address] Maged Campoen PLT 411 103/ul Normal 150-450 [facility] Comment on above: Performed By: #### C BC #### [facility] [address] [place], [place] [address] Maged Lutz RBC 4.83 106/ul Normal 4.20-5.40 [facility] Comment on above: Performed By: #### C BC #### [facility] [address] [place] [address] Maged Lutz WBC 9.9 103/ul Normal 4.0-11.0 [facility] Comment on above: Performed By: #### C BC #### [facility] [address] [place], [place] [id number] Maged Ltuz FERRITINon 05-08-2020 Ferritin [Mass/Vol] 14.0 ng/mL Normal 6.2-137.0 [facility] Comment on above: Performed By: #### F ERR, FETIBC #### [facility] [address] [place] [address] Maged Lutz IRON AND TIBCon 05-08-2020 % SATURATION 6.7 % Normal [facility] Comment on above: Performed By: #### F ERR, FETIBC #### [facility] [address] [place], [place] [address] Maged Lutz Iron [Mass/Vol] 29.0 ug/dL Critically low 37.0-170.0 [facility] Comment on above: Performed By: #### F ERR, FETIBC #### [facility] [address] [place], [place] [address] Maged Lutz TIBC DIRECT 433.0 ug/dL Normal 261.0-497.0 [facility] Comment on above: Performed By: #### F ERR, FETIBC #### [facility] [address] [place], [place] [address] Maged Lutz Auth for Release of Medical Recordson 12-24-2019 Auth for Release of Medical Records [id number] Normal [facility] Chlam & GC, DNAon 05-13-2019 Chlamydia, DNA Negative Normal Negative [facility] Comment on above: Result Comment: The [...] to the clinician. Performed By: #### C [id number] #### [facility] [address] [place] [address] Gonorrhea, DNA Negative Normal Negative [facility] Comment on above: Result Comment: The [...] to the clinician. Performed By: #### C [id number] #### [facility] [address] [place] [address] Coding Summary.on 03-11-2019 Coding Summary. CODING DATE: 019 FINAL [facility] STATUS: Home (Routine DC) PAYOR: Medical Marshall ADMIT DX: REASON FOR VISIT DX: Z01.419 [...] Miner Date Saved: 03/11/2019 04:00 pm Normal [facility] Gynecology Office/Clinic Not samantha 03-05-2019 Gynecology [...] condoms at every sexual encounter Ordered: PAP [id number] CT/GC w/rflx HPV HR 2. 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 (Z01.419: Encounter for gynecological examination (general) (routine) without abnormal findings) RTC annually or PRN Will notify of results Call with questions or concerns Discussed self breast exams Ordered: PAP [id number] CT/GC w/rflx HPV HR Periodic Comp Preventive Med 18 to 39 years Est [id number] Orders: drospirenone-ethinyl estradiol, 1 tab(s), Oral, Daily, 84 tab(s), Refill(s) 4, [facility] [facility] venlafaxine, 37.5 mg = 1 cap(s), Oral, Daily, # 90 cap(s), Refills(s) 4, Pharmacy: [facility] [facility] Follow-up No qualifying data available Problem List/Past [...] Family History Family history is negative Normal [facility] Comment on above: Result Comment: Elec tronically Signed By: Chrissy SIMPSON CNP.jurgen\Date and Time Signed: 03/05/19 14:01 EDT Chlam & GC, DNAon 07-23-2018 Chlamydia, DNA Positive Critically abnormal Negative [facility] Comment on above: Result Comment: The [...] Last, Title, Location) Performed By: #### C [id number] #### [address] [address] Gonorrhea, DNA Negative Normal Negative [facility] Comment on above: Result Comment: The [...] to the clinician. Performed By: #### C [id number] #### [address] [address] Vital Signs Date Time Vital Sign Value Performing Clinician Facility 08-09-2024 17:04-0500 Body height 157.48 cm Sherley Mitchell DO Work Phone: [facility] 08-09-2024 17:04-0500 Body mass index (BMI) [Ratio] 34 kg/m2 Sherley Mitchell DO Work Phone: [facility] 08-09-2024 17:04-0500 Body temperature 97.7 [degF] Sherley Mitchell DO Work Phone: [facility] 08-09-2024 17:04-0500 Body weight 84.5 kg Sherley Mitchell DO Work Phone: [facility] 08-09-2024 17:04-0500 Diastolic blood pressure 76 mm[Hg] Sherley Mitchell DO Work Phone: [facility] 08-09-2024 17:04-0500 Heart rate 84 /min Sherley Mitchell DO Work Phone: [facility] 08-09-2024 17:04-0500 SaO2% (BldA) [Mass fraction] 96 % Sherley Mitchell DO Work Phone: [facility] 08-09-2024 17:04-0500 Systolic blood pressure 124 mm[Hg] Sherley Giradha DO Work Phone: [facility] 05-05-2024 09:53-0500 Body mass index (BMI) [Ratio] 33.3 kg/m2 Sherley iGradha DO Work Phone: [facility] 05-05-2024 09:53-0500 Body temperature 97.5 [degF] Sherley Giradha DO Work Phone: [facility] 05-05-2024 09:53-0500 Diastolic blood pressure 70 mm[Hg] Sherley Mitchell DO Work Phone: [facility] 05-05-2024 09:53-0500 Heart rate 98 /min Sherley Mitchell DO Work Phone: [facility] 05-05-2024 09:53-0500 SaO2% (BldA) [Mass fraction] 98 % Sherley Giradha DO Work Phone: [facility] 05-05-2024 09:53-0500 Systolic blood pressure 114 mm[Hg] Sherley Mitchell DO Work Phone: [facility] 05-05-2024 08:53-0500 Body height 157.48 cm Sherley Mitchell DO Work Phone: [facility] 05-05-2024 08:53-0500 Body weight 82.55 kg Sherley Mitchell DO Work Phone: [facility] 04-06-2024 09:35-0400 Body height 157.5 cm [facility] 04-06-2024 09:35-0400 Body mass index (BMI) [Ratio] 32.92 kg/m2 [facility] 04-06-2024 09:35-0400 Body weight 81.65 kg [facility] 04-06-2024 09:35-0400 Diastolic blood pressure 88 mm[Hg] [facility] 04-06-2024 09:35-0400 Systolic blood pressure 118 mm[Hg] [facility] 09-30-2023 09:20-0400 Body mass index (BMI) [Ratio] 35.63 kg/m2 [facility] 09-30-2023 09:20-0400 Body weight 88.36 kg [facility] 09-30-2023 09:20-0400 Diastolic blood pressure 62 mm[Hg] [facility] 09-30-2023 09:20-0400 Systolic blood pressure 98 mm[Hg] [facility] 07-30-2023 13:00-0500 Body height 156.21 cm Sherley Mitchell Other [facility] Other 07-30-2023 13:00-0500 Body mass index (BMI) [Ratio] 37.55 kg/m2 Sherley Mitchell Other [facility] Other 07-30-2023 13:00-0500 Body temperature 98.6 [degF] Sherley Mitchell Other [facility] Other 07-30-2023 13:00-0500 Body weight 91.63 kg Sherley Mitchell Other [facility] Other 07-30-2023 13:00-0500 Diastolic blood pressure 80 mm[Hg] Sherley Mitchell Other [facility] Other 07-30-2023 13:00-0500 Respiratory rate 18 /min Sherley Mitchell Other [facility] Other 07-30-2023 13:00-0500 SaO2% (BldA) [Mass fraction] 97 % Sherley Mitchell Other [facility] Other 07-30-2023 13:00-0500 Systolic blood pressure 128 mm[Hg] Sherley Mitchell Other [facility] Other 07-24-2023 09:30-0500 Body weight 92.99 kg Sherley Mitchell Other [facility] Other 04-17-2023 10:30-0400 Body height 156.21 cm Sherley Giradha Other [facility] Other 03-12-2023 10:30-0400 Body height 156.21 cm Sherley Giradha Other [facility] Other 03-12-2023 10:30-0400 Body mass index (BMI) [Ratio] 37.17 kg/m2 Sherley Giradha Other [facility] Other 03-12-2023 10:30-0400 Body temperature 98 [degF] Sherley Giradha Other [facility] Other 03-12-2023 10:30-0400 Body weight 90.72 kg Sherley Angeloradha Other [facility] Other 03-12-2023 10:30-0400 Diastolic blood pressure 76 mm[Hg] Sherley Mitchell Other [facility] Other 03-12-2023 10:30-0400 Respiratory rate 18 /min Sherley Giradha Other [facility] Other 03-12-2023 10:30-0400 SaO2% (BldA) [Mass fraction] 98 % Sherley Mitchell Other [facility] Other 03-12-2023 10:30-0400 Systolic blood pressure 116 mm[Hg] Sherley Mitchell Other [facility] Other Encounters Encounter Date Encounter Type Care Provider Facility Start: 08-09-2024 End: 08-09-2024 ambulatory Sherley Mitchell DO Work Phone: [facility] Work Phone: Start: 08-09-2024 End: 08-09-2024 Patient encounter procedure Sherley Mitchell DO Work Phone: [facility] Physician [facility] Work Phone: Start: 07-31-2024 Non-patient / Non-visit Sherley Mitchell DO Work Phone: [facility] Physician [facility] Work Phone: Start: 05-13-2024 End: 05-13-2024 Patient encounter procedure Sherley Mitchell DO Work Phone: [facility] [place] Work Phone: Start: 05-13-2024 End: 05-13-2024 ambulatory Sherley Mitchell DO Work Phone: [facility] Work Phone: Start: 05-05-2024 End: 05-05-2024 Patient encounter procedure Sherley Mitchell DO Work Phone: [facility] Physician [facility] Work Phone: Start: 05-04-2024 Non-patient / Non-visit Sherley Mitchell DO Work Phone: [facility] Work Phone: Start: 04-16-2024 End: 04-16-2024 Orders Only Edelmira Foster RN MEDICAL INPATIENT SERVICES-RETAIL SELLING FLOOR LEADER Work Phone: [facility]icians Obstetrics/Gynecology Comment on above: Encounter for initia l prescription of contraceptive pills (Primary Dx) Start: 04-06-2024 End: 04-06-2024 ambulatory EDELMIRA FOSTER [facility] Start: 04-06-2024 End: 04-06-2024 Patient encounter procedure [facility] Start: 04-06-2024 End: 04-06-2024 Periodic preventive med est patient 18-39 yrs [facility] Comment on above: Well woman exam with routine gynecological exam (Primary Dx); Screening examination for STD (sexually transmitted disease); General counselling and advice on contraception; Initial encounter for management of contraceptive patch use; Standardized adult depression screening tool completed Start: 04-06-2024 End: 04-06-2024 ambulatory [facility] Start: 04-06-2024 Encounter for gynecological examination (general) (routine) without abnormal findings [facility] Start: 03-02-2024 Non-patient / Non-visit Sherley Mitchell DO Work Phone: [facility] Physician [facility] Work Phone: Start: 10-10-2023 End: 10-10-2023 Telephone encounter Fadia Medrano [facility] Obstetrics/Gynecology Start: 09-30-2023 End: 09-30-2023 [facility] Start: 09-30-2023 End: 09-30-2023 Office outpatient visit 15 minutes [facility] Comment on above: Vaginal discharge (P rimary Dx); Screen for STD (sexually transmitted disease) Start: 09-30-2023 End: 09-30-2023 ambulatory [facility] Start: 07-30-2023 End: 07-30-2023 ambulatory Sherley Mitchell Other [facility] Other Start: 07-30-2023 Nursing evaluation o f patient and report Sherley Mitchell [facility] Start: 07-24-2023 End: 07-24-2023 ambulatory Sherley Mitchell Other [facility] Other Start: 07-24-2023 Office outpatient vi sit 15 minutes Sherley Mitchell [facility] Start: 07-03-2023 End: 07-03-2023 ambulatory Sherley Mitchell Other [facility] Other Start: 07-03-2023 Telephone encounter Sherley Mitchell [facility] Start: 06-18-2023 End: 06-18-2023 ambulatory EDELMIRA FOSTER [facility] Start: 06-18-2023 End: 06-18-2023 ambulatory [facility] Start: 05-05-2023 End: 05-05-2023 ambulatory Sherley Mitchell Other [facility] Other Start: 05-05-2023 [facility] Start: 04-17-2023 End: 04-17-2023 ambulatory Sherley Mitchell Other [facility] Other Start: 04-17-2023 Office outpatient vi sit 10 minutes Sherley Mitchell [facility] Start: 03-12-2023 End: 03-12-2023 ambulatory Sherley Mitchell Other [facility] Other Start: 03-12-2023 Office outpatient vi sit 10 minutes [facility] Start: 03-16-2021 End: 03-16-[address] SHERLEY MITCHELL Facility:[facility] Start: 05-08-2020 End: 05-09-[address] SHERLEY MITCHELL Facility:[facility] Procedures Date Procedure Procedure Detail Performing Clinician Start: 05-13-2024 US scan of thyroid Travis Mitchell DO Work Phone: Start: 04-06-2024 Urine test visual color cmprsn meths Edelmira Foster RN MEDICAL INPATIENT SERVICES-RETAIL SELLING FLOOR LEADER Work Phone: Start: 04-06-2024 Adult depression scr eening assessment [facility] Start: 03-11-2023 Adult depression scr eening assessment [facility] Start: 03-11-2023 Microscopic observat ion [Identifier] in Cervix by Cyto stain [facility] Plan of Treatment Date Care Activity Detail Author Start: 02-13-2031 DTaP,Tdap and Td Vaccines (7 - Td or Tdap) DTaP,Tdap and Td Vaccines (7 - Td or Tdap) [facility] Start: 03-11-2026 Screening for malign ant neoplasm of cervix Pap Smear [facility] Start: 04-06-2025 Adult BMI Follow Up Plan Adult BMI Follow Up Plan [facility] Start: 04-06-2025 Adult BMI Screening Adult BMI Screen ing [facility] Start: 04-06-2025 Depression Screening Depression Scre ening [facility] Start: 04-06-2025 Tobacco Screening Tobacco Screening [facility] Start: 09-29-2024 Adult BMI Screening Adult BMI Screen ing [facility] Start: 09-29-2024 Tobacco Screening Tobacco Screening [facility] Start: 07-07-2024 End: 07-07-2024 Patient encounter procedure 07/07/2024 9:30 AM EST Office Visit [facility] [address] [place] [address] [facility] Start: 04-06-2024 End: 04-06-2025 Chlamydia/GC by PCR [facility] Chlamydia/GC by PCR [facility] Microbiology Routine Screening examination for STD (sexually transmitted disease) Expected: 04/06/2024 (Approximate), Expires: 04/06/2025 [facility] Work Phone: Comment on above: Expected: 04/06/2024 (Approximate), Expires: 04/06/2025 Start: 04-06-2024 End: 04-06-2025 Trichomonas by PCR Trichomonas by PCR Microbiology Routine Screening examination for STD (sexually transmitted disease) Expected: 04/06/2024 (Approximate), Expires: 04/06/2025 [facility] Comment on above: Expected: 04/06/2024 (Approximate), Expires: 04/06/2025 Start: 03-11-2024 Adult BMI Follow Up Plan Adult BMI Follow Up Plan [facility] Start: 03-11-2024 Depression Screening Depression Scre ening [facility] Start: 02-29-2024 Influenza vaccination Influenza Vacc ine [facility] End: 09-29-2024 Chlamydia/GC by PCR [facility] Chlamydia/GC by PCR [facility] Microbiology Routine Vaginal discharge Screen for STD (sexually transmitted disease) 1 Occurrences starting 09/30/2023 until 09/29/2024 [facility] Comment on above: 1 Occurrences starti ng 09/30/2023 until 09/29/2024 Comprehensive metabo lic 1999 panel - Serum or Plasma [facility] Comprehensive metabo lic 1999 panel - Serum or Plasma [facility] End: 04-06-2025 Hepatitis panel, acute Hepatitis panel, acute Lab Routine Screening examination for STD (sexually transmitted disease) 1 Occurrences starting 04/06/2024 until 04/06/2025 [facility] Comment on above: 1 Occurrences starti ng 04/06/2024 until 04/06/2025 End: 04-06-2025 HIV 1&2 AB/AG Screen (P24 AG) HIV 1&2 AB/AG Screen (P24 AG) Lab Routine Screening examination for STD (sexually transmitted disease) 1 Occurrences starting 04/06/2024 until 04/06/2025 [facility] Comment on above: 1 Occurrences starti ng 04/06/2024 until 04/06/2025 Insulin [Units/volum e] in Serum or Plasma [facility] End: 04-06-2025 Syphilis Total(Unknown Syphilis Status) Syphilis Total(Unknown Syphilis Status) Lab Routine Screening examination for STD (sexually transmitted disease) 1 Occurrences starting 04/06/2024 until 04/06/2025 [facility] Comment on above: 1 Occurrences starti ng 04/06/2024 until 04/06/2025 End: 09-29-2024 Vaginitis Panel PCR Vaginitis Panel PCR Microbiology Routine Vaginal discharge 1 Occurrences starting 09/30/2023 until 09/29/2024 [facility] Work Phone: Comment on above: 1 Occurrences starti ng 09/30/2023 until 09/29/2024 [facility] Immunizations Immunization Date Immunization Notes Care Provider Fa cility 02-13-2021 tetanus toxoid, redu dunia diphtheria toxoid, and acellular pertussis vaccine, adsorbed Sherley Mitchell Other [facility] 11-10-2002 diphtheria, tetanus toxoids and acellular pertussis vaccine, unspecified formulation Sherley Mitchell DO Work Phone: [facility] 11-10-2002 measles, mumps and rubella virus vaccine Sherley Mitchell DO Work Phone: [facility] 11-10-2002 poliovirus vaccine, inactivated Sherley Mitchell DO Work Phone: [facility] 12-13-1999 diphtheria, tetanus toxoids and acellular pertussis vaccine, unspecified formulation Sherley Mitchell DO Work Phone: [facility] 12-13-1999 haemophilus influenz ae type b vaccine, conjugate unspecified formulation Sherley Mitchell DO Work Phone: [facility] 12-13-1999 measles, mumps and rubella virus vaccine Sherley Mitchell DO Work Phone: [facility] 12-13-1999 varicella virus vaccine Travis ana Mitchell DO Work Phone: [facility] 1998 diphtheria, tetanus toxoids and acellular pertussis vaccine, unspecified formulation Sherley Mitchell DO Work Phone: [facility] 1998 haemophilus influenz ae type b vaccine, conjugate unspecified formulation Sherley Mitchell DO Work Phone: [facility] 1998 hepatitis B vaccine, pediatric or pediatric/adolescent dosage Sherley Mitchell DO Work Phone: [facility] 1998 trivalent poliovirus vaccine, live, oral Sherley Mitchell DO Work Phone: [facility] 1998 diphtheria, tetanus toxoids and acellular pertussis vaccine, unspecified formulation Sherley Mitchell DO Work Phone: [facility] 1998 haemophilus influenz ae type b vaccine, conjugate unspecified formulation Sherley Mitchell DO Work Phone: [facility] 1998 poliovirus vaccine, inactivated Sherley Mitchell DO Work Phone: [facility] 1998 diphtheria, tetanus toxoids and acellular pertussis vaccine, unspecified formulation Sherley Mitchell DO Work Phone: [facility] 1998 haemophilus influenz ae type b vaccine, conjugate unspecified formulation Sherley Mitchell DO Work Phone: [facility] 1998 hepatitis B vaccine, pediatric or pediatric/adolescent dosage Sherley Mitchell DO Work Phone: [facility] 1998 poliovirus vaccine, inactivated Sherley Mitchell DO Work Phone: [facility] Payers Date Payer Category Payer Self-pay 2024 [employer] [facility] - Other COUNT INCLUDES THE [facility] [id number] 2024 Unknown [id number] 2021 Unknown [id number] 1998 Unknown [id number] 593 1998 Unknown [id number]. 593 1998 Unknown [id number]. 1286 1998 Unknown [id number]. 1286 1998 Unknown [id number]. 1286 1998 Unknown [id number]. 1286 1998 Unknown [id number] [id number]. 1286 1998 Unknown [id number]. 1286 1959 Unknown [id number] Unknown [id number] 531 Social History Date Type Detail Facility Start: 09-30-2023 End: 04-06-2024 Sex Assigned At [facility] Start: 08-07-2022 End: 08-25-2023 Tobacco smoking status NHIS Never smoked tobacco (finding) [facility] Start: 05-14-2024 Sex Patient sex un known (finding) [facility] Start: 2000 Sex Assigned At Female F [facility] Start: 02-02-2015 End: 08-09-2024 Sex Female (finding) [facility] Start: 08-07-2022 Tobacco use and exposure Smokeless tobacco non-user [facility] Start: 09-30-2023 End: 04-06-2024 Alcohol intake Current drinker of alcohol (finding) [facility] Start: 09-30-2023 End: 04-06-2024 History of Social function [facility] Adolescent depressio n screening assessment 8 [facility] Start: 08-07-2022 Alcohol Comment socially [facility] Start: 2000 Sex Assigned At Not on file P [facility] Clinical Notes 03-16-2021 to 05-13-2024 Note Date & Type Note Facility 05-13-2024 Radiology Diagnostic study note [facility] [place] [address] Ultrasound Report Signed Patient: Tonia Tidwell MR#: [id number] : 2000 Acct:[id number] Age/Sex: 24 / F ADM Date: 4 Loc: Room: Type: [facility] CLI Attending Dr: Sherley Mitchell DO Ordering [...] Diego Ventura M.D.05/13/2024 4:16 PM Dictation Location: [place] [address] Tech: Magda England Transcribed By: LEIDY 05/13/241615 Dictated By: Diego Ventura DO 05/13/241614 Signed By: 05/13/241615 [facility] 05-05-2024 Evaluation note Authored May 05, 2024 10:26am The above note written by __ _Carlos Chadwick____ acting as human recorder, note dictated by Dr. Hermosillo .I performed the above HPI, ROS, and Examination. I formulated and dictated the treatment plan and was present for entire encounter. Sherley Mitchell D.O. [facility] Work Phone: 1(917) 967-419710-08-2024 History of Present illness Narrative* Edelmira Foster, RN MEDICAL INPATIENT SERVICES-RETAIL SELLING FLOOR LEADER - 04/06/2024 9:30 AM EDT Annual Well Woman Visit 04/06/2024 Janel Tidwell is a pleasant 24 y.o. female who presents for annual body line finisher exam. 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 Follow up as needed. Next pap due 2025 per ASCCP guidelines. Discussed taking a multivitamin. Discussed Calcium and Vitamin D for prevention of osteoporosis. Discussed recommendations for HPV vaccine between 9-45 yo. Can be received at [facility] or the [facility]. Discussed need for yearly mammogram after 40 yo. Discussed colon cancer screening recommendations to begin at 45 yo, patient to discuss with PCP. All questions answered. RTO 3 months for medication follow up. DANELLE Currie APRN-CNP Lisa M Krotzer, APRN-CNP 04/06/24 1017 [facility] Miscellaneous Notes* Telephone Encounter - Fadia Medrano CMA - 10/10/2023 2:14 PM EDT Called and lvm for pt to call office back regarding STD blood work results * Telephone Encounter - Marylin Galvin - 10/10/2023 2:14 PM EDT Pt returned call & advised of negative results. [facility] Telephone encounter Note* Telephone Encounter - Fadia Medrano CMA - 10/10/2023 2:14 PM EDT Called and lvm for pt to call office back regarding STD blood work results [facility]04-12-2024 Telephone encounter Note* Telephone Encounter - Marylin Galvin - 10/10/2023 2:14 PM EDT Pt returned call & advised of negative results. [employer] [id number] History of Present illness Narrative* Edelmira Markham, RN MEDICAL INPATIENT SERVICES-RETAIL SELLING FLOOR LEADER - 09/30/2023 9:15 AM EDT Subjective: Tonia [...] pelvic pain. Patient states she went [facility] over the weekend and had syphilis, hepatitis [...] accordingly. KARL signed to obtain labs from [facility]. Consistent condom use recommended for STD prevention. All questions answered. Educational material provided through [employer]. RTO for annual (due February 2024) or sooner as needed. KRYSTIAN Lopez APRN-CNP Lisa M Franco, APRN-CNP 09/30/23 0937 documented in this encounterKerbs [facility] HospitalTap2[facility] [id number] Evaluation note* Encounter Date Diagnosis Assessment Notes Treatment Notes Treatment Clinical Notes Jun, Weight gain (ICD-10 - R63.5) [facility] Other [id number] Evaluation note* Encounter Date Diagnosis Assessment Notes [...] then she could continue with this medication prison. I would need to see her again [...] of any breach, fraud, or malicious third green party actors and no personal patient information was compromised. [facility] Other 10-19-2023 Evaluation note* Encounter Date Diagnosis [...] Other 10:45 AM - 10:5 0 AM [facility] Other 09-13-2023 Evaluation note* Encounter Date Diagnosis [...] I am unable to visualize the TMs. [facility] Other 09-17-2021 NoteHISTORY AND PHYSICAL EXAMINATION CHIEF [...] will be discharged home after the procedure.. [facility] Signed and Approved by: DR VINCE VIRK . 03/23/2021 06:09:00[facility]09-17-2021 NoteOPERATIVE NOTE OPERATION DATE: 03/16/2021 PREOPERATIVE DIAGNOSIS: Acute appendicitis. POSTOPERATIVE DIAGNOSIS: Acute appendicitis. PROCEDURE PERFORMED: Laparoscopic appendectomy. SURGEON: Vince Virk MD TRANSMITTER OPERATOR: PATRICA Lind ANESTHESIA: General, 0.5% Marcaine for [...] correct at the end of the case.. [facility] Signed and Approved by: DR VINCE VIRK . 03/17/2021 07:52:00[facility] noteNo InformationNortLehigh [facility] Other Evaluation note* Diagnosis Onset Date Resolution Status Admit Date Josselyn thyroiditis acute Feb ruary 2024 5:18pm Hyperglycemia acute August 092024 5:18pm [facility] deficiency anemia acute Fe bruary 2024 5:18pm Weight gain acute July 5:18pm [facility] Work Phone: Evaluation note* Diagnosis Vaginal discharge- Primary Leukorrhea, not specified as infective Screen for STD (sexually transmitted disease) Screening examination for venereal disease documented [facility]* Diagnosis Well woman exam with routine gynecological exam- Primary Routine gynecological examination Screening examination for STD (sexually transmitted disease) General counselling and advice on contraception Initial encounter for management of contraceptive patch use Standardized adult depression screening tool completed [facility] Encounter for initial prescription of contraceptive pills- Primary [facility] - Reported* Type Description Date Medical History chickenpox Medical History anxiety Medical History chronic depression [facility] [place] Other Instructions* Attachments The following attachments cannot be sent through Care Everywhere. * Vaginitis (Bolivian) * Control Options ([place]ian) [facility] SystemInstructionsNot on file [facility]* Attachments The following attachments cannot be sent through Care Everywhere. * How to Perform Breast Self-Examination ([place]ian) * Ethinyl Estradiol and Norelgestromin, ADULT ([place]ian) [facility] SystemInstructionsNot on file [facility] Summary Purpose Family History Relationship Condition Age at Onset Recorded Date/T teresa grandparent Malignant neoplasm of breast Unknown Advance Directives Advance Directive Response Recorded Date/ Time Advance Directives February 10:28am Chief Complaint and Reason for Visit Chief Complaint Admit Date med refill Adipex/review labs May 052023 9:50am E06.3 May 13, 2024 9:15am Reason for Visit Admit Date Abnormal TSH May 05, 2024 9 :50am Hyperglycemia May 05, 2024 9 :50am Iron deficiency anemia May 05 9:50am Weight gain May 05, 2024 9 :50am Chief Complaint Admit Date E06.3 May 13, 2024 9:15am review labs/med refill August 09 5:18pm Reason for Visit Admit Date Josselyn thyroiditis August 09 5:18pm Hyperglycemia August 09, 2024 5:18pm Iron deficiency anemia August 09 5:18pm Weight gain August 09, 2024 5:18pm Additional Source Comments INFORMATION SOURCE (unrecogn ized section and content) DATE CREATED AUTHOR 05/13/2019 [facility] DATE CREATED AUTHOR AUTHOR'S ORGANIZ ATION 01/19/2020 [facility] DATE CREATED AUTHOR AUTHOR'S ORGANIZ ATION 03/23/2021 [facility] DATE CREATED AUTHOR AUTHOR'S ORGANIZ ATION 04/07/2024 [facility] DATE CREATED AUTHOR AUTHOR'S ORGANIZ ATION 04/08/2024 [facility] DATE CREATED AUTHOR AUTHOR'S ORGANIZ ATION 05/18/2024 [facility] REASON FOR VISIT (unrecogniz ed section and content) Reason Comments Vaginal Discharge Reason Comments Gynecologic Exam Pt is here for annua l exam. Contraception Pt is interested in BC pills. Care Teams (unrecognized sec tion and content) Team Status: Active Member Role Status Dates Sherley Mitchell DO Primary Care Provider Active Team Status: Inactive Member Role Status Dates Sherley Mitchell DO Primary Care Provide r, Attending Provider Active Start: May 13, 2024 End: May 13, 2024 Team Status: Active Member Role Status Dates Sherley Mitchell DO Primary Care Provide r, Attending Provider Active Start: July 31, 2024 Team Status: Inactive Member Role Status Dates Sherley Mitchell DO Primary Care Provide r, Attending Provider Active Start: August 09, 2024 End: August 09, 2024 Team Status: Active Member Role Status Dates Sherley Mitchell DO Primary Care Provide r, Attending Provider Active Start: March 02, 2024 Team Status: Active Member Role Status Dates Sherley Mitchell , DO Primary Care Provide r, Attending Provider Active Start: May 04, 2024 Team Status: Inactive Member Role Status Dates Sherley Mitchell , DO Primary Care Provide r, Attending Provider Active Start: May 05, 2024 End: May 05, 2024 Goals (unrecognized section and content) Goals [...] BE BASED ON THE PRIMARY CLINICAL RECORDS. [employer] [facility]. provides no warranty or guarantee of the accuracy or completeness of information in this document.
[2024-11-12 15:47] LABS: Alanine Aminotransferase 29 U/L (14-59); Albumin Level 3.6 g/dL (3.4-5.0); Alkaline Phosphatase 53 U/L (46-116); Anion Gap 9.5; Aspartate Amino Transferase 18 U/L (15-37); BUN Creatinine Ratio 14.3; Bilirubin Total 0.2 mg/dL (0.2-1.0); Calcium 8.9 mg/dL (8.5-10.1); Carbon Dioxide 29.1 mmol/L (21.0-32.0); Chloride 103 mmol/L (98-107); Estimated GFR (African America >60 (>=60 mL/min/1.73m^2); Estimated GFR (Non-African Ame >60 (>=60 mL/min/1.73m^2); Free T3 2.54 pg/mL (2.18-3.98); Globulin 3.5 g/dL; Glucose 90 mg/dL (74-106); Potassium 3.6 mmol/L (3.5-5.1); Sodium 138 mmol/L (136-145); Thyroid Stimulating Hormone 2.298 uIU/mL (0.358-3.740); Total Protein 7.1 g/dL (6.4-8.2)
[2024-11-12 16:09] LABS: Free T4 1.05 ng/dL (0.76-1.46)
== END 2024-11-12 15:00 | disposition home or self-care (01) ==
LOC: LAB 15:00
PROVIDERS: PCP Family Medicine; Visit Provider Family Medicine
DX: Z79.899 Other long term (current) drug therapy (principal); D64.9 Anemia, unspecified; E03.9 Hypothyroidism, unspecified; D50.9 Iron deficiency anemia, unspecified
CPT/HCPCS: 36415; 80053; 82728; 83540; 83550; 84439; 84443; 84481; 85025